=== PATIENT | female | born 1975 | race Caucasian/White ===

== ENCOUNTER 2017-11-15 15:50 | Emergency (ER) | payer OTHER ==
[2017-11-15] MEDS ORDERED: DOXYCYCLINE 100 MG CAP PO ONE (16:16)
--- NOTE | 2017-11-15 17:03 | RAD REPORT ---
EXAM DESCRIPTION: RAD - Foot Left 3 View - 11/15/2017 4:47 pm CLINICAL HISTORY: Left Foot pain FINDINGS: No fracture or dislocation is seen. Degenerative changes involve the navicular cuneiform joint consisting of osteophytes, subchondral sc lerosis and subchondral cysts
--- NOTE | 2017-11-15 17:05 | ER ---
Nurse's Notes [facility] Name: Gracie Ford Age: 42 yrs Sex: Female : 1975 Arrival Date: 11/15/2017 Time: 15:51 Bed 17 Private MD: Diagnosis: Cellulitis of back [any part except buttock];Fracture of other and unspecified tarsal bone(s) Presentation: 11/15 15:56 Presenting complaint: Patient states: I have had an abscess for 2 weeks and now the la1 area on my back is red and spreading. I also fell 3 days ago and my left foot is hurting. Transition of care: patient was not received from another setting of care. Onset of symptoms was November 15, 2017. Initial Sepsis Screen: Does the patient meet any 2 criteria? HR > 90 bpm. Does the patient have a suspected source of infection? Yes:. Care prior to arrival: None. 15:56 Method Of Arrival: Ambulatory la1 15:56 Acuity: JULIANE 3 la1 Triage Assessment: 16:01 Injury Description: pt. hurt left ankle when she tripped over her son that was laying rb1 on the floor. 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 - Social history:: Smoking status: Patient uses tobacco products, smokes one-half pack cigarettes per day. Screenin:01 Abuse screen: Denies threats or abuse. Nutritional screening: No deficits noted. rb1 Tuberculosis screening: No symptoms or risk factors identified. Fall Risk Fall in past 12 months (25 points). No secondary diagnosis (0 pts). No IV (0 pts). Ambulatory Aid- None/Bed Rest/Nurse Assist (0 pts). Gait- Normal/Bed Rest/Wheelchair (0 pts) Mental Status- Oriented to own ability (0 pts). Total Jo Fall Scale indicates Low Risk Score (25-44 pts). Fall prevention measures have been instituted. Side Rails Up X 2 Placed close to Nursing Station 1:1 attendant Assigned to Pt. Frequent Obs/Assesments occuring Family Present and informed to notify staff if they need to leave bedside As available Patient and Family Educated on Fall Prevention Program and strategies. Assessment: 16:01 General: Appears in no apparent distress. comfortable, obese, Behavior is calm, rb1 cooperative, Denies fever. Pain: Complains of pain in left foot Pain currently is 6 out of 10 on a pain scale. Neuro: Level of Consciousness is awake, alert, obeys commands, Oriented to person, place, time, situation. Neuro: Reports dizziness. Cardiovascular: Capillary refill < 3 seconds is brisk in bilateral fingers. Respiratory: Airway is patent Respiratory effort is even, unlabored, Respiratory pattern is regular, symmetrical. GI: Reports nausea. : No signs and/or symptoms were reported regarding the genitourinary system. Derm: Skin is pink, warm \\T\\ dry. Musculoskeletal: Swelling present in left foot pt. stated, "my son was in the floor and I tripped and fell and hurt my ankle.". 17:00 Reassessment: Patient appears in no apparent distress at this time. Patient and/or rb1 family updated on plan of care and expected duration. Pain level reassessed. Patient is alert, oriented x 3, equal unlabored respirations, skin warm/dry/pink. Vital Signs: 15:57 BP 139 / 77; Pulse 100; Resp 19; Temp 98.4(TE); Pulse Ox 100% on R/A; Weight 81.65 kg; la1 Height 5 ft. 2 in. (157.48 cm); 17:00 BP 141 / 88; Pulse 95; Resp 18; Pulse Ox 100% on R/A; rb1 15:57 Body Mass Index 32.92 (81.65 kg, 157.48 cm) la1 ED Course: 15:51 Patient arrived in ED. as 15:54 [facility]C [facility] snw 15:54 Martin Corcoran MD is Attending Physician. snw 15:57 Triage completed. la1 15:58 Arm band placed on left wrist. la1 16:01 Patient has correct armband on for positive identification. Bed in low position. Call rb1 light in reach. Side rails up X 1. Pulse ox on. NIBP on. 16:06 Jasmin Decker RN is Primary Nurse. ph 16:14 Amna Ruiz, RN is Primary Nurse. rb1 16:44 X-ray completed. Portable x-ray completed in exam room. Patient tolerated procedure kp1 well. 16:44 Foot Left 3 View XRAY In Process Unspecified. EDMS 17:04 Tyler Gordon MD is Referral Physician. snw 17:12 Orthoglass splint: Posterior short lleg splint applied on left leg. capillary refill dh3 less than 3 seconds. 17:40 No provider procedures requiring assistance completed. Patient did not have IV access rb1 during this emergency room visit. Administered Medications: 16:24 Drug: Doxycycline 100 mg Route: PO; rb1 17:00 Follow up: Response: No adverse reaction rb1 17:40 Drug: [place] 5 mg-325 mg 1 tabs Route: PO; rb1 17:55 Follow up: Response: Medication administered at discharge. rb1 17:55 Not Given (Patient Refused): TORadol 60 mg IM once rb1 Outcome: 17:04 Discharge ordered by MD. snw 17:40 Patient left the ED. rb1 17:40 Discharged to home via wheelchair, with crutches, with family. rb1 17:40 Condition: stable 17:40 Discharge instructions given to patient, Instructed on discharge instructions, follow up and referral plans. medication usage, Demonstrated understanding of instructions, follow-up care, medications, Prescriptions given X 2. Signatures: Dispatcher [employer] EDND Melania Epps, METAL BONDING PRESS OPERATOR-C METAL BONDING PRESS OPERATOR-Csnw Khalida Bass Lee, RN RN la1 Jasmin Decker RN RN Amna Ruiz, RN RN rb1 RennerKenyatta daily kp1 Aarti Howe dh3 Corrections: (The following items were deleted from the chart) 17:57 17:55 Patient left the ED. rb1 rb1
--- NOTE | 2017-11-15 17:05 | EDPHYS ---
Physician Documentation [facility] Name: Gracie Ford Age: 42 yrs Sex: Female : 1975 Arrival Date: 11/15/2017 Time: 15:51 Bed 17 Private MD: ED Physician Martin Corcoran HPI: 11/15 16:27 This 42 yrs old Female presents to ER via Ambulatory with complaints of snw Abscess, Foot Injury. 16:27 The patient presents with an abscess of the right scapular area. Description: snw erythematous. Onset: The symptoms/episode began/occurred 1 week(s) ago, and became persistent. Associated signs and symptoms: The patient has no apparent associated signs or symptoms. Severity of symptoms: At their worst the symptoms were moderate. The patient has experienced similar episodes in the past, chronically. The patient has been recently seen at the [facility] Emergency Department, a couple of weeks ago, for similar complaints. multiple abscess in the past. Pt states that she would also like her left foot evaluated s/p fall several days ago. 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 - Social history:: Smoking status: Patient uses tobacco products, smokes one-half pack cigarettes per day. ROS: 16:18 Constitutional: Negative for fever, chills, and weight loss, Eyes: Negative for injury, snw pain, redness, and discharge, ENT: Negative for injury, pain, and discharge, Neck: Negative for injury, pain, and swelling, Cardiovascular: Negative for chest pain, palpitations, and edema, Respiratory: Negative for shortness of breath, cough, wheezing, and pleuritic chest pain, Abdomen/GI: Negative for abdominal pain, nausea, vomiting, diarrhea, and constipation, Back: Negative for injury and pain, : Negative for injury, bleeding, discharge, and swelling, Neuro: Negative for headache, weakness, numbness, tingling, and seizure. 16:18 MS/extremity: Positive for injury or acute deformity, decreased range of motion, pain, of the left foot. 16:18 Skin: Positive for abscess, of the right scapular area. Exam: 16:14 Constitutional: This is a well developed, well nourished patient who is awake, alert, snw and in no acute distress. Head/Face: Normocephalic, atraumatic. Eyes: Pupils equal round and reactive to light, extra-ocular motions intact. Lids and lashes normal. Conjunctiva and sclera are non-icteric and not injected. Cornea within normal limits. Periorbital areas with no swelling, redness, or edema. ENT: Nares patent. No nasal discharge, no septal abnormalities noted. Tympanic membranes are normal and external auditory canals are clear. Oropharynx with no redness, swelling, or masses, exudates, or evidence of obstruction, uvula midline. Mucous membranes moist. Neck: Trachea midline, no thyromegaly or masses palpated, and no cervical lymphadenopathy. Supple, full range of motion without nuchal rigidity, or vertebral point tenderness. No Meningismus. Chest/axilla: Normal chest wall appearance and motion. Nontender with no deformity. No lesions are appreciated. Cardiovascular: Regular rate and rhythm with a normal S1 and S2. No gallops, murmurs, or rubs. Normal PMI, no JVD. No pulse deficits. Respiratory: Lungs have equal breath sounds bilaterally, clear to auscultation and percussion. No rales, rhonchi or wheezes noted. No increased work of breathing, no retractions or nasal flaring. Abdomen/GI: Soft, non-tender, with normal bowel sounds. No distension or tympany. No guarding or rebound. No evidence of tenderness throughout. Back: No spinal tenderness. No costovertebral tenderness. Full range of motion. + erythematous, draining area to right scapular border that pt has cleaned, area with central area of recent abscess, no discharge, + surrounding minimal cellulitis Neuro: Awake and alert, GCS 15, oriented to person, place, time, and situation. Cranial nerves II-XII grossly intact. Motor strength 5/5 in all extremities. Sensory grossly intact. Cerebellar exam normal. Normal gait. 16:14 Musculoskeletal/extremity: Extremities: grossly normal except: noted in the left foot: contusion, decreased ROM, swelling, tenderness. Vital Signs: 15:57 BP 139 / 77; Pulse 100; Resp 19; Temp 98.4(TE); Pulse Ox 100% on R/A; Weight 81.65 kg; la1 Height 5 ft. 2 in. (157.48 cm); 17:00 BP 141 / 88; Pulse 95; Resp 18; Pulse Ox 100% on R/A; rb1 15:57 Body Mass Index 32.92 (81.65 kg, 157.48 cm) la1 Procedures: 17:03 Splinting: Splint applied to left foot using Orthoglass splint, applied by tech. snw Examined by me, post splint application: neurovascular intact, 2+ distal pulses palpable, brisk capillary refill noted, Patient tolerated well. MDM: 16:07 Patient medically screened. snw 16:29 Data reviewed: vital signs, nurses notes. Data interpreted: Pulse oximetry: on room air snw is 100 %. Interpretation: normal. Counseling: I had a detailed discussion with the patient and/or guardian regarding: the historical points, exam findings, and any diagnostic results supporting the discharge/admit diagnosis, the presence of at least one elevated blood pressure reading (>120/80) during this emergency department visit, radiology results, the need for outpatient follow up. ED course: pt has actually made quite a bit of progress toward resolving abscess and cellulitis at right scapular border.. 16:53 Special discussion: I have referred the patient to see his PCP for further evaluation snw of high blood pressure. I discussed in detail with the patient the higher chance of wound infection based on his presenting history. Based on the history and exam findings, there is no indication for further emergent testing or inpatient evaluation. I discussed with the patient/guardian the need to see the delphi developer for further evaluation of the symptoms. I discussed with the patient/guardian the need to see the orthopedic surgeon for further evaluation of the symptoms. I discussed with the patient/guardian the need to see the primary care provider for further evaluation of the symptoms. 11/15 16:13 Order name: Foot Left 3 View XRAY; Complete Time: 17:08 snw 11/15 16:50 Order name: Posterior Orthoglass Ankle Splint; Complete Time: 17:34 snw 11/15 16:50 Order name: Crutches; Complete Time: 17:12 snw 11/15 17:08 Order name: Crutch Training; Complete Time: 17:12 snw Administered Medications: 16:24 Drug: Doxycycline 100 mg Route: PO; rb1 17:00 Follow up: Response: No adverse reaction rb1 17:40 Drug: [place] 5 mg-325 mg 1 tabs Route: PO; rb1 17:55 Follow up: Response: Medication administered at discharge. rb1 17:55 Not Given (Patient Refused): TORadol 60 mg IM once rb1 Disposition: 11/15/17 17:04 Discharged to Home. Impression: Cellulitis of back [any part except buttock], Fracture of other and unspecified tarsal bone(s). - Condition is Stable. - Discharge Instructions: Abscess, Cast or Splint Care, Cellulitis, Foot Contusion, Tarsal Navicular Fracture, Crutch Use, [id number], Heat Therapy. - Prescriptions for Doxycycline Hyclate 100 mg Oral Tablet - take 1 tablet by ORAL route every 12 hours; 20 tablet. Diclofenac Sodium 75 mg Oral Tablet Sustained Release - take 1 tablet by ORAL route 2 times per day; 30 tablet. - Medication Reconciliation Form, Thank You Letter, Antibiotic Education, Prescription Opioid Use form. - Follow up: Private Physician; When: 2 - 3 days; Reason: Recheck today's complaints, Continuance of care, Re-evaluation by your physician. Follow up: Tyler Gordon MD; When: 2 - 3 days; Reason: Recheck today's complaints, Continuance of care. Signatures: Dispatcher [employer] EDMelania Martinez, CLEANING VALIDATION CONSULTANT-C CLEANING VALIDATION CONSULTANT-Csnw Milton Ramirez RN RN la1 Amna Ruiz, RN RN rb1
[2017-11-15] MEDS ORDERED: HYDROCODONE/APAP 5/325 MG TAB ONE (17:37)
[2017-11-15] MEDS ORDERED: KETOROLAC 30 MG/ML INJ ONE (17:37)
== END 2017-11-15 17:55 | disposition home or self-care (01) ==
LOC: ER 15:50
DX: L03.312 Cellulitis of back [any part except buttock and flank] (principal); S92.202A Fracture of unspecified tarsal bone(s) of left foot, initial encounter for closed fracture; W01.0XXA Fall on same level from slipping, tripping and stumbling without subsequent striking against object, initial encounter; Y93.89 Activity, other specified; Y92.019 Unspecified place in single-family (private) house as the place of occurrence of the external cause
CPT/HCPCS: 99284

== ENCOUNTER 2018-01-23 20:03 | Emergency (ER) | payer OTHER ==
[2018-01-23] MEDS ORDERED: ASPIRIN 81 MG CHEWABLE TABLET ONE (20:54)
[2018-01-23 21:17] LABS: Absolute Lymphocytes (CBC) 1.2 K/uL (0.7-4.9); Absolute Monocytes 0.6 K/uL (0.1-1.3); Absolute Neutrophil 8.9 K/uL (1.8-8.0); Basophils % 0.2 % (0-1.3); Eosinophils % 0.7 % (0-4.4); Hematocrit 39.1 % (36.0-45.0); Lymphocytes % 11.4 % (15.3-44.8); MCH 28.5 pg (27.0-35.0); MCV 83.6 fL (80-100); MPV 7.8 fL (7.6-11.3); Monocytes % 5.2 % (3.3-12.3); RBC Red Blood Cell Count 4.67 M/uL (3.86-4.86)
[2018-01-23 21:32] LABS: Protime INR 0.95
[2018-01-23 21:36] LABS: ALT/SGPT 70 U/L (12-78); AST/SGOT 34 U/L (15-37); Albumin 3.9 g/dL (3.4-5.0); Alkaline Phosphatase 135 U/L (45-117); BUN Blood Urea Nitrogen 9 mg/dL (7-18); Bicarbonate 28 mmol/L (21-32); Bilirubin Direct < 0.1 mg/dL (0-0.2); Bilirubin Total 0.3 mg/dL (0.2-1.0); Glucose Level 131 mg/dL (74-106); Magnesium 1.9 mg/dL (1.8-2.4); NT PRO-BNP 55 pg/mL (<125); Potassium 3.6 mmol/L (3.5-5.1); Protein, Total 8.1 g/dL (6.4-8.2); Sodium Level 139 mmol/L (136-145)
--- NOTE | 2018-01-23 22:11 | RAD REPORT ---
EXAM DESCRIPTION: Clementina Hanson (2 Views)01/23/2018 9:27 pm CLINICAL HISTORY: Chest pain COMPARISON: 2007 FINDINGS: The lungs appear clear of acute infiltrate. The heart is normal size IMPRESSION: No acute abnormalities displayed
[2018-01-23 23:36] LABS: Urine Blood NEGATIVE (NEG); Urine Glucose NEGATIVE (NEG); Urine Protein NEGATIVE (NEG); Urine Specific Gravity 1.015 (1.005-1.030); Urine pH 5.5 (5.0-7.0)
[2018-01-24] MEDS ORDERED: LORazepam 2 MG/ML VIAL ONE (00:58)
--- NOTE | 2018-01-24 01:16 | EDPHYS ---
Physician Documentation [facility] Name: Gracie Ford Age: 43 yrs Sex: Female : 1975 Arrival Date: 01/23/2018 Time: 20:06 Bed 26 Private MD: ED Physician Sahil Oliva HPI: 01/24 01:51 This 43 yrs old Female presents to ER via Ambulatory with complaints of wa Breathing Difficulty, Near Syncope. 01:51 The patient has shortness of breath at rest, sudden onset of L side chest pain with wa radiation down L arm. also assoc with SOB. now resolved but states feels anxious all over.. Onset: The symptoms/episode began/occurred just prior to arrival, today. Duration: The symptoms are continuous, but are markedly better than the original presentation. The patient's shortness of breath is aggravated by nothing, is alleviated by nothing. Associated signs and symptoms: Pertinent positives: chest pain, dizziness, SOB, Pertinent negatives: diaphoresis, hemoptysis, vomiting. Severity of symptoms: At their worst the symptoms were moderate in the emergency department the symptoms have resolved. The patient has experienced a previous episode, last week. advised to go see a ornament setter but didn't . The patient has not recently seen a physician. 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 - Social history:: Smoking status: Patient uses tobacco products, smokes one-half pack cigarettes per day. - Ebola Screening: : No symptoms or risks identified at this time. - Family history:: not pertinent. - Hospitalizations: : No recent hospitalization is reported. ROS: 01/24 01:54 Constitutional: Negative for fever, chills, and weight loss, Eyes: Negative for injury, wa pain, redness, and discharge, ENT: Negative for injury, pain, and discharge, Neck: Negative for injury, pain, and swelling, Abdomen/GI: Negative for abdominal pain, nausea, vomiting, diarrhea, and constipation, Back: Negative for injury and pain, : Negative for injury, bleeding, discharge, and swelling, MS/Extremity: Negative for injury and deformity, Skin: Negative for injury, rash, and discoloration, Psych: Negative for depression, anxiety, suicide ideation, homicidal ideation, and hallucinations. Cardiovascular: Positive for chest pain, Negative for edema, orthopnea, palpitations. Respiratory: Positive for shortness of breath, Negative for cough, hemoptysis, orthopnea, pleurisy. Exam: 01:55 Constitutional: This is a well developed, well nourished patient who is awake, alert, wa and in no acute distress. Head/Face: Normocephalic, atraumatic. Eyes: Pupils equal round and reactive to light, extra-ocular motions intact. Lids and lashes normal. Conjunctiva and sclera are non-icteric and not injected. Cornea within normal limits. Periorbital areas with no swelling, redness, or edema. ENT: Nares patent. No nasal discharge, no septal abnormalities noted. Tympanic membranes are normal and external auditory canals are clear. Oropharynx with no redness, swelling, or masses, exudates, or evidence of obstruction, uvula midline. Mucous membranes moist. Neck: Trachea midline, no thyromegaly or masses palpated, and no cervical lymphadenopathy. Supple, full range of motion without nuchal rigidity, or vertebral point tenderness. No Meningismus. Cardiovascular: Regular rate and rhythm with a normal S1 and S2. No gallops, murmurs, or rubs. Normal PMI, no JVD. No pulse deficits. Respiratory: Lungs have equal breath sounds bilaterally, clear to auscultation and percussion. No rales, rhonchi or wheezes noted. No increased work of breathing, no retractions or nasal flaring. Abdomen/GI: Soft, non-tender, with normal bowel sounds. No distension or tympany. No guarding or rebound. No evidence of tenderness throughout. Back: No spinal tenderness. No costovertebral tenderness. Full range of motion. Skin: Warm, dry with normal turgor. Normal color with no rashes, no lesions, and no evidence of cellulitis. MS/ Extremity: Pulses equal, no cyanosis. Neurovascular intact. Full, normal range of motion. Neuro: Awake and alert, GCS 15, oriented to person, place, time, and situation. Cranial nerves II-XII grossly intact. Motor strength 5/5 in all extremities. Sensory grossly intact. Cerebellar exam normal. Normal gait. Psych: Awake, alert, with orientation to person, place and time. Behavior, mood, and affect are within normal limits. Vital Signs: 01/23 20:13 Weight 86.18 kg; Height 5 ft. 2 in. (157.48 cm); Pain 9/10; kr2 21:56 BP 126 / 73; Pulse 91; Resp 18; Pulse Ox 96% on R/A; Pain 0/10; mb3 23:59 BP 139 / 73; Pulse 84; Resp 18; Pulse Ox 99% on R/A; mb3 20:13 Body Mass Index 34.75 (86.18 kg, 157.48 cm) kr2 MDM: 20:25 Patient medically screened. 01/24 01:55 Differential diagnosis: Anxiety Reaction Myocardial Infarction pulmonary edema, wa reactive airway disease, Unstable Angina. Data reviewed: vital signs, nurses notes, lab test result(s), EKG, radiologic studies. Test interpretation: by ED physician or midlevel provider: EKG: HR 79. nml axis. no acute changes concerning for ischemia. 01:57 Test interpretation: by ED physician or midlevel provider: labs noted wnl including 2 sets of enzymes. . ED course: Risk factor of smoking. no significant family history. HEART score <3. will have f/u with ornament setter as out pt. 01/23 20:48 Order name: Basic Metabolic Panel; Complete Time: 21:58 01/23 20:48 Order name: CBC with Diff; Complete Time: 21:58 01/23 20:48 Order name: LFT's; Complete Time: 21:58 01/23 20:48 Order name: Magnesium; Complete Time: 21:58 01/23 20:48 Order name: NT PRO-BNP; Complete Time: 21:58 01/23 20:48 Order name: PT-INR; Complete Time: 21:58 01/23 20:48 Order name: Troponin (emerg Dept Use Only); Complete Time: 21:58 01/23 20:48 Order name: EKG; Complete Time: 20:48 01/23 20:48 Order name: Cardiac monitoring; Complete Time: 21:10 29 20:48 Order name: Chest Pa And Lat (2 Views) XRAY; Complete Time: 23:43 la 01/23 22:26 Order name: Urine Dipstick--Ancillary (enter results); Complete Time: 23:43 01/23 23:47 Order name: Troponin (emerg Dept Use Only); Complete Time: 00:43 la 01/23 20:48 Order name: EKG - Nurse/Tech; Complete Time: 21: la 01/23 20:48 Order name: IV Saline Lock; Complete Time: 21: la 01/23 20:48 Order name: Labs collected and sent; Complete Time: 21: la 01/23 20:48 Order name: O2 Per Protocol; Complete Time: 21: la 01/23 20:48 Order name: O2 Sat Monitoring; Complete Time: 21: la 01/23 20:48 Order name: Urine Dipstick-Ancillary (obtain specimen); Complete Time: 23:59 la Administered Medications: 01/23 21:00 Drug: Aspirin Chewable Tablet 324 mg Route: PO; mb3 23:48 Follow up: Response: No adverse reaction mb3 01/24 01:01 Follow up: Response: No adverse reaction mb3 01:00 Drug: Ativan 0.5 mg Route: IVP; Site: left antecubital; mb3 02:03 Follow up: Response: No adverse reaction mb3 Disposition: 01/24/18 01:16 Discharged to Home. Impression: Chest pain. - Condition is Stable. - Discharge Instructions: Nonspecific Chest Pain, [id number]. - Prescriptions for Xanax 0.25 mg Oral Tablet - take 1 tablet by ORAL route every 8 hours As needed; 8 tablet. - Medication Reconciliation Form, Thank You Letter, Antibiotic Education, Prescription Opioid Use form. - Follow up: Ravin Alston MD; When: 2 - 3 days; Reason: Recheck today's complaints. - Problem is new. - Symptoms have improved. - Notes: follow up with the ornament setter as discussed. take a baby aspirin daily as discussed until cleared by the ornament setter. return for rapidly worsening concerns Signatures: Dispatcher [employer] EDMS Sahil Oliva MD MD wa Reaves, Karey RN RN kr2 Harris, Shorty, RN RN mb3 Corrections: (The following items were deleted from the chart) 02:03 01:16 01/24/2018 01:16 Discharged to Home. Impression: Chest pain. Condition is Stable. mb3 Forms are Medication Reconciliation Form, Thank You Letter, Antibiotic Education, Prescription Opioid Use. Follow up: Ravin Alston; When: 2 - 3 days; Reason: Recheck today's complaints. Problem is new. Symptoms have improved. wa
--- NOTE | 2018-01-24 01:16 | ER ---
Nurse's Notes [facility] Name: Gracie Ford Age: 43 yrs Sex: Female : 1975 Arrival Date: 01/23/2018 Time: 20:06 Bed 26 Private MD: Diagnosis: Chest pain Presentation: 01/23 20:11 Presenting complaint: Patient states: I am having chest pain, left arm pain, and kr2 burning throughout my body. I was seen at the [facility] last week because I haven't been feeling well. They told me I had a clicking sound in my heart and I needed to see a state trooper. I have not been able to see one yet or make an appointment. Transition of care: patient was not received from another setting of care. Onset of symptoms was January 23, 2018. Risk Assessment: Do you want to hurt yourself or someone else? Patient reports no desire to harm self or others. Initial Sepsis Screen: Does the patient meet any 2 criteria? No. Patient's initial sepsis screen is negative. Does the patient have a suspected source of infection? No. Patient's initial sepsis screen is negative. Care prior to arrival: None. 20:11 Method Of Arrival: Ambulatory kr2 20:11 Acuity: JULIANE 3 kr2 Triage Assessment: 20:23 General: Appears in no apparent distress. obese, unkempt, well developed, Behavior is kr2 cooperative, anxious, restless. Pain: Complains of pain in xyphoid area, mid-sternal area and left breast Pain radiates to left arm Pain currently is 10 out of 10 on a pain scale. Quality of pain is described as sharp, shooting, Is continuous, Alleviated by rest, Aggravated by increased activity. Respiratory: Reports shortness of breath on exertion Onset: The symptoms/episode began/occurred today, the patient reports symptoms have resolved. 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 - Social history:: Smoking status: Patient uses tobacco products, smokes one-half pack cigarettes per day. - Ebola Screening: : No symptoms or risks identified at this time. - Family history:: not pertinent. - Hospitalizations: : No recent hospitalization is reported. Screenin:25 Abuse screen: Denies threats or abuse. Denies injuries from another. Nutritional kr2 screening: No deficits noted. Tuberculosis screening: No symptoms or risk factors identified. Fall Risk None identified. Assessment: 20:25 Pain:. Cardiovascular: Rhythm is sinus tachycardia. Respiratory: Airway is patent kr2 Respiratory effort is even, unlabored. 21:11 General: Appears in no apparent distress. comfortable, Behavior is calm, cooperative, mb3 appropriate for age. Neuro: No deficits noted. Level of Consciousness is awake, alert, obeys commands, Oriented to person, place, time, situation, Appropriate for age. Respiratory: Breath sounds are clear bilaterally. GI: No deficits noted. No signs and/or symptoms were reported involving the gastrointestinal system. 21:56 Reassessment: Patient and/or family updated on plan of care and expected duration. Pain mb3 level reassessed. Patient is alert, oriented x 3, equal unlabored respirations, skin warm/dry/pink. Patient states feeling better. Patient states symptoms have improved. 01/24 00:04 Reassessment: Patient and/or family updated on plan of care and expected duration. Pain mb3 level reassessed. Patient is alert, oriented x 3, equal unlabored respirations, skin warm/dry/pink. Patient states feeling better. Vital Signs: 01/23 20:13 Weight 86.18 kg; Height 5 ft. 2 in. (157.48 cm); Pain 9/10; kr2 21:56 BP 126 / 73; Pulse 91; Resp 18; Pulse Ox 96% on R/A; Pain 0/10; mb3 23:59 BP 139 / 73; Pulse 84; Resp 18; Pulse Ox 99% on R/A; mb3 20:13 Body Mass Index 34.75 (86.18 kg, 157.48 cm) kr2 ED Course: 19:45 Inserted saline lock: 20 gauge in left antecubital area, using aseptic technique. Blood mb3 collected. 20:06 Patient arrived in ED. es 20:10 Jessy Ruiz, LELIA is Primary Nurse. kr2 20:13 Triage completed. kr2 20:24 Arm band placed on. kr2 20:25 Sahil Oliva MD is Attending Physician. wa 20:25 Patient has correct armband on for positive identification. Bed in low position. Call kr2 light in reach. Side rails up X 1. compliance monitor on. Pulse ox on. NIBP on. Door closed. Warm blanket given. Head of bed elevated. 21:25 X-ray completed. Patient tolerated procedure well. ag1 21:26 Chest Pa And Lat (2 Views) XRAY In Process Unspecified. [facility] 01/24 01:15 Ravin Alston MD is Referral Physician. wa 02:02 No provider procedures requiring assistance completed. IV discontinued, intact, mb3 bleeding controlled, No redness/swelling at site. Pressure dressing applied. Administered Medications: 01/23 21:00 Drug: Aspirin Chewable Tablet 324 mg Route: PO; mb3 23:48 Follow up: Response: No adverse reaction mb3 01/24 01:01 Follow up: Response: No adverse reaction mb3 01:00 Drug: Ativan 0.5 mg Route: IVP; Site: left antecubital; mb3 02:03 Follow up: Response: No adverse reaction mb3 Outcome: 01:16 Discharge ordered by . wa 02:01 Discharged to home ambulatory, with family. mb3 02:01 Condition: stable 02:01 Discharge instructions given to patient, Instructed on discharge instructions, follow up and referral plans. medication usage, Demonstrated understanding of instructions, follow-up care, medications, Prescriptions given X 1. 02:03 Patient left the ED. mb3 Signatures: Dispatcher [employer] [facility] Ginny Carvajal Ashley ag1 Sahil Oliva MD MD wa Reaves, Karey, LELIA RN kr2 Shorty Harris, RN RN mb3
--- NOTE | 2018-01-24 08:41 | EKG ---
Test Date: 2018-01-23 Test Time: 22:09:32 Log Hooker: MB MEASUREMENT RESULTS: Intervals: Rate: 79 ND: 138 QRSD: 90 QT: 368 QTc: 421 [place]: P: 37 ND: 138 QRS: 17 T: 20 INTERPRETIVE STATEMENTS: Normal sinus rhythm Low voltage QRS Borderline ECG Compared to ECG 06/03/2008 18:47:30 Low QRS voltage now present Electronically Signed On 01-24-18 08:40:32 CDT by Romero Colin
== END 2018-01-24 02:03 | disposition home or self-care (01) ==
LOC: ER 20:03
DX: R07.9 Chest pain, unspecified (principal); R06.00 Dyspnea, unspecified; R55 Syncope and collapse; F17.210 Nicotine dependence, cigarettes, uncomplicated; Z88.8 Allergy status to other drugs, medicaments and biological substances
CPT/HCPCS: 36415; 71046; 80048; 80076; 81003; 83735; 83880; 84484; 85025; 85610; 93005; 96374; 99284

== ENCOUNTER 2018-04-06 21:11 | Observation (INO) | payer MEDICAID, OTHER, SELFPAY ==
--- NOTE | 2018-04-06 21:56 | RAD REPORT ---
EXAM DESCRIPTION: RAD - Chest Single View - 04/06/2018 9:51 pm CLINICAL HISTORY: CHEST PAIN Chest pain. COMPARISON: Chest Pa And Lat (2 Views) dated 01/23/2018; CHEST SINGLE VIEW dated 06/03/2008; CHEST PA AND LAT 2 VIEW dated 12/10/2007; CHEST PA AND LAT 2 VIEW dated 08/03/2002 FINDINGS: Portable technique limits examination quality. Mild interstitial pulmonary edema is seen. No focal infiltrate suggestive of pneumonia present. The h eart is mildly enlarged in size. No displaced fractures.
--- NOTE | 2018-04-06 22:04 | ER ---
Nurse's Notes [facility] Name: Gracie Ford Age: 43 yrs Sex: Female : 1975 Arrival Date: 04/06/2018 Time: 21:12 Bed 2 Private MD: Diagnosis: Chest pain, unspecified;Acute laryngitis;Hypokalemia;Cardiomegaly Presentation: 04/06 21:38 Presenting complaint: Patient states: Left sided CP that radiates to left shoulder. Pt tl2 states that it feels like something is choking her. Pt states she is currently on methadone and it feels like she's having withdrawal symptoms. Pt states she feels hot all over. Hoarseness to voice noted. Transition of care: patient was not received from another setting of care. Onset of symptoms was April 06, 2018 at 18:00. Risk Assessment: Do you want to hurt yourself or someone else? Patient reports no desire to harm self or others. Initial Sepsis Screen: Does the patient meet any 2 criteria? No. Patient's initial sepsis screen is negative. Does the patient have a suspected source of infection? No. Patient's initial sepsis screen is negative. Care prior to arrival: None. 21:38 Method Of Arrival: Wheelchair tl2 21:38 Acuity: JULIANE 3 tl2 Triage Assessment: 21:40 General: Appears in no apparent distress. uncomfortable, Behavior is cooperative, tl2 appropriate for age, anxious. Pain: Complains of pain in left clavicle and anterior aspect of left upper chest Pain radiates to anterior aspect of left shoulder Quality of pain is described as sharp. Neuro: Level of Consciousness is awake, alert, obeys commands, Oriented to person, place, time, situation. Cardiovascular: Chest pain is described as diffuse, quality is sharp, is located in anterior radiates to left scapula began 3 hours prior to arrival. Respiratory: Reports shortness of breath Airway is patent Respiratory effort is even, unlabored, Respiratory pattern is regular, symmetrical. GI: No signs and/or symptoms were reported involving the gastrointestinal system. : No signs and/or symptoms were reported regarding the genitourinary system. Derm: Skin is pink, warm \T\ dry. Historical: - Allergies: 21:40 Phenergan; tl2 21:40 Zofran; tl2 21:40 Reglan; tl2 - Home Meds: 21:40 methadone 40 mg Oral TbSO 1 tab once daily for Opioid Dependence [Active]; Zoloft 100 tl2 mg Oral tab [Active]; - PMHx: 21:40 Depression; tl2 - Immunization history:: Adult Immunizations up to date. - Social history:: Smoking status: Patient uses tobacco products, smokes one-half pack cigarettes per day. - Ebola Screening: : No symptoms or risks identified at this time. - Family history:: not pertinent. Screenin:43 Abuse screen: Denies threats or abuse. Nutritional screening: No deficits noted. tl2 Tuberculosis screening: No symptoms or risk factors identified. Fall Risk None identified. Assessment: 21:45 General: see triage assessment. tl2 23:10 Reassessment: Patient appears in no apparent distress at this time. Patient and/or tl2 family updated on plan of care and expected duration. Pain level reassessed. Patient is alert, oriented x 3, equal unlabored respirations, skin warm/dry/pink. Pt states she would like to have ativan. 04/07 00:30 Reassessment: Patient appears in no apparent distress at this time. Patient and/or tl2 family updated on plan of care and expected duration. Pain level reassessed. Patient is alert, oriented x 3, equal unlabored respirations, skin warm/dry/pink. Pt stable and ready for transport to floor. Vital Signs: 04/06 21:40 BP 180 / 98; Pulse 90; Resp 15; Pulse Ox 98% on R/A; Weight 81.65 kg; Height 5 ft. 5 tl2 in. (165.10 cm); Pain 02/03; 04/07 00:46 BP 133 / 80; Pulse 84; Resp 18; Pulse Ox 96% ; tl2 04/06 21:40 Body Mass Index 29.95 (81.65 kg, 165.10 cm) tl2 ED Course: 04/06 21:12 Patient arrived in ED. am2 21:32 Kalyan Pascual MD is Attending Physician. yolie 21:32 Sheri Diop is Primary Nurse. cc3 21:39 Triage completed. tl2 21:40 Arm band placed on right wrist. tl2 21:43 Patient has correct armband on for positive identification. Bed in low position. Call tl2 light in reach. Side rails up X2. Adult w/ patient. 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 Pulse ox on. NIBP on. 21:43 Inserted saline lock: 20 gauge in right forearm, using aseptic technique. Blood tl2 collected. placed by LELIA Goldsmith. Patient maintains SpO2 saturation greater than 95% on room air. 21:50 X-ray completed. Portable x-ray completed in exam room. Patient tolerated procedure bb2 well. 21:51 XRAY Chest (1 view) In Process Unspecified. EDMS 22:02 Lyric Easton MD is Hospitalizing Provider. [facility] 22:04 Violet Nichols RN is Primary Nurse. tl2 22:[address] via stretcher. jg6 22:20 CT Head Brain wo Cont In Process Unspecified. EDMS 22:20 CT completed. Patient tolerated procedure well. Patient moved back from CT. nj 22:20 Patient moved to radiology. nj 22:28 X-ray completed. Patient tolerated procedure well. mh1 23:[address] via stretcher. kw1 23:45 CT completed. Patient tolerated procedure well. Patient moved back from CT. kw1 09 00:30 No provider procedures requiring assistance completed. Patient admitted, IV remains in tl2 place. Administered Medications: 04/06 22:05 Not Given (Patient Refused): fentaNYL (PF) 25 mcg IVP once tl2 22:15 Drug: Aspirin Chewable Tablet 324 mg Route: PO; cc3 04/07 00:08 Follow up: Response: No adverse reaction bp 04/06 23:20 Drug: Lovenox 1 mg/kg Route: Sub-Q; Site: left upper abdomen; tl2 04/07 00:07 Follow up: Response: No adverse reaction bp 04/06 23:21 Drug: Potassium Effervescent Tablet 50 mEq Route: PO; tl2 04/07 00:07 Follow up: Response: No adverse reaction bp 04/06 23:21 Drug: Ativan 1 mg Route: IVP; Site: right antecubital; tl2 04/07 00:07 Follow up: Response: Anxiety decreased bp Outcome: 04/06 22:03 Decision to Hospitalize by Provider. yolie 04/07 00:30 Admitted to Tele accompanied by tech, via wheelchair, room 408, with chart, Report tl2 called to LELIA Wilson Condition: stable Discharge instructions given to patient, Instructed on the need for admit. 01:22 Patient left the ED. tl2 Signatures: Dispatcher [employer] EDKalyan Barahona MD MD cha Harvey, Martha 1 Violet Nichols RN RN tl2 Ismael Castillo Amanda 2 Agus Islas RN RN bp Milena Mcclure kw1 CornucopiaRadha bb2 Sheri Diop cc3 Grecia Wynn jg6 Corrections: (The following items were deleted from the chart) 04/06 21:49 21:38 Presenting complaint: Patient states: Left sided CP that radiates to left tl2 shoulder. Pt states that it feels like something is choking her. Pt states she is currently on methadone and it feels like she's having withdrawal symptoms tl2 04/07 01:18 01:17 Reassessment: Patient appears in no apparent distress at this time. Patient tl2 and/or family updated on plan of care and expected duration. Pain level reassessed. Patient is alert, oriented x 3, equal unlabored respirations, skin warm/dry/pink. Pt states she would like to have ativan tl2
--- NOTE | 2018-04-06 22:04 | EDPHYS ---
Physician Documentation [facility] Name: Gracie Ford Age: 43 yrs Sex: Female : 1975 Arrival Date: 04/06/2018 Time: 21:12 Bed 2 Private MD: ED Physician Kalyan Pascual HPI: 04/06 21:56 This 43 yrs old Female presents to ER via Wheelchair with complaints of Chest yolie Pain > 30 y/o. 21:56 The patient or guardian reports chest pain that is located primarily in the anterior yolie chest wall, bilaterally. Onset: just prior to arrival. The pain radiates to both shoulders. Associated signs and symptoms: Pertinent positives: nausea, shortness of breath. The chest pain is described as a heaviness, a pressure. Modifying factors: The symptoms are alleviated by nothing. the symptoms are aggravated by nothing. Severity of pain: At its worst the pain was moderate in the emergency department the pain is unchanged. The patient has experienced a previous episode, last year. Historical: - Allergies: 21:40 Phenergan; tl2 21:40 Zofran; tl2 21:40 Reglan; tl2 - Home Meds: 21:40 methadone 40 mg Oral TbSO 1 tab once daily for Opioid Dependence [Active]; Zoloft 100 tl2 mg Oral tab [Active]; - PMHx: 21:40 Depression; tl2 - Immunization history:: Adult Immunizations up to date. - Social history:: Smoking status: Patient uses tobacco products, smokes one-half pack cigarettes per day. - Ebola Screening: : No symptoms or risks identified at this time. - Family history:: not pertinent. ROS: 21:56 Constitutional: Negative for fever, chills, and weight loss, Eyes: Negative for injury, yolie pain, redness, and discharge, ENT: Negative for injury, pain, and discharge, Neck: Negative for injury, pain, and swelling, Respiratory: Negative for shortness of breath, cough, wheezing, and pleuritic chest pain, Abdomen/GI: Negative for abdominal pain, nausea, vomiting, diarrhea, and constipation, Back: Negative for injury and pain, : Negative for injury, bleeding, discharge, and swelling, MS/Extremity: Negative for injury and deformity, Skin: Negative for injury, rash, and discoloration, Neuro: Negative for headache, weakness, numbness, tingling, and seizure, Psych: Negative for depression, anxiety, suicide ideation, homicidal ideation, and hallucinations, Allergy/Immunology: Negative for hives, rash, and allergies, Endocrine: Negative for neck swelling, polydipsia, polyuria, polyphagia, and marked weight changes, Hematologic/Lymphatic: Negative for swollen nodes, abnormal bleeding, and unusual bruising. 21:56 Cardiovascular: Positive for chest pain, of the chest. Exam: 21:56 Constitutional: This is a well developed, well nourished patient who is awake, alert, yolie and in no acute distress. Head/Face: Normocephalic, atraumatic. Eyes: Pupils equal round and reactive to light, extra-ocular motions intact. Lids and lashes normal. Conjunctiva and sclera are non-icteric and not injected. Cornea within normal limits. Periorbital areas with no swelling, redness, or edema. ENT: Nares patent. No nasal discharge, no septal abnormalities noted. Tympanic membranes are normal and external auditory canals are clear. Oropharynx with no redness, swelling, or masses, exudates, or evidence of obstruction, uvula midline. Mucous membranes moist. Neck: Trachea midline, no thyromegaly or masses palpated, and no cervical lymphadenopathy. Supple, full range of motion without nuchal rigidity, or vertebral point tenderness. No Meningismus. Chest/axilla: Normal chest wall appearance and motion. Nontender with no deformity. No lesions are appreciated. Cardiovascular: Regular rate and rhythm with a normal S1 and S2. No gallops, murmurs, or rubs. Normal PMI, no JVD. No pulse deficits. Respiratory: Lungs have equal breath sounds bilaterally, clear to auscultation and percussion. No rales, rhonchi or wheezes noted. No increased work of breathing, no retractions or nasal flaring. Abdomen/GI: Soft, non-tender, with normal bowel sounds. No distension or tympany. No guarding or rebound. No evidence of tenderness throughout. Back: No spinal tenderness. No costovertebral tenderness. Full range of motion. Skin: Warm, dry with normal turgor. Normal color with no rashes, no lesions, and no evidence of cellulitis. MS/ Extremity: Pulses equal, no cyanosis. Neurovascular intact. Full, normal range of motion. Neuro: Awake and alert, GCS 15, oriented to person, place, time, and situation. Cranial nerves II-XII grossly intact. Motor strength 5/5 in all extremities. Sensory grossly intact. Cerebellar exam normal. Normal gait. Psych: Awake, alert, with orientation to person, place and time. Behavior, mood, and affect are within normal limits. 21:56 ENT: Posterior pharynx: no acute changes, Airway: normal, no evidence of obstruction, Tonsils: are normal in appearance, Uvula: normal, midline, swelling, is not appreciated, erythema, is not appreciated, exudate, is not appreciated. 23:02 Musculoskeletal/extremity: DVT Exam: No signs of deep vein thrombosis. no pain, no yolie swelling, no tenderness, negative Homans' sign noted on exam, no appreciated bluish discoloration, no erythema, no increased warmth. Vital Signs: 21:40 BP 180 / 98; Pulse 90; Resp 15; Pulse Ox 98% on R/A; Weight 81.65 kg; Height 5 ft. 5 tl2 in. (165.10 cm); Pain 02/03; 04/07 00:46 BP 133 / 80; Pulse 84; Resp 18; Pulse Ox 96% ; tl2 04/06 21:40 Body Mass Index 29.95 (81.65 kg, 165.10 cm) tl2 MDM: 04/06 21:32 Patient medically screened. [facility] 22:00 Data reviewed: vital signs, nurses notes, lab test result(s), EKG, radiologic studies, [facility] CT scan, plain films. 04/06 21:42 Order name: Basic Metabolic Panel; Complete Time: 23:00 bp 04/06 21:42 Order name: CBC with Diff; Complete Time: 23:00 bp 04/06 21:42 Order name: Ckmb; Complete Time: 23:00 bp 04/06 21:42 Order name: CPK; Complete Time: 23:00 bp 04/06 21:42 Order name: LFT's; Complete Time: 23:00 bp 04/06 21:42 Order name: Magnesium; Complete Time: 23:00 bp 04/06 21:42 Order name: NT PRO-BNP; Complete Time: 23:00 bp 04/06 21:42 Order name: PT-INR; Complete Time: 23:00 bp 04/06 21:42 Order name: Ptt, Activated; Complete Time: 23:00 bp 04/06 21:42 Order name: Troponin (emerg Dept Use Only); Complete Time: 23:00 bp 04/06 21:58 Order name: Lipase; Complete Time: 23:00 EDMS 04/06 21:58 Order name: D-Dimer; Complete Time: 23:00 EDMS 04/06 21:42 Order name: Urine Test (obtain specimen); Complete Time: 22:29 bp 04/06 21:42 Order name: XRAY Chest (1 view); Complete Time: 23:00 bp 04/06 21:42 Order name: EKG; Complete Time: 21:44 bp 04/06 21:42 Order name: Cardiac monitoring; Complete Time: 21:43 bp 04/06 22:01 Order name: Neck Soft Tissue XRAY [facility] 04/06 22:01 Order name: CT Head Brain wo Cont [facility] 04/06 22:07 Order name: CONS Physician Consult [facility] 04/06 22:20 Order name: Urine Dipstick--Ancillary (enter results); Complete Time: 23:58 rg2 04/06 22:20 Order name: Urine --Ancillary (enter results); Complete Time: 23:58 rg2 04/06 22:38 Order name: RAD; Complete Time: 23:00 EDMS 04/06 23:02 Order name: CT Chest For PE Angio [facility] 04/06 21:42 Order name: EKG - Nurse/Tech; Complete Time: 21:44 bp 04/06 21:42 Order name: IV Saline Lock; Complete Time: 21:44 bp 04/06 21:42 Order name: Labs collected and sent; Complete Time: 21:44 bp 04/06 21:42 Order name: O2 Per Protocol; Complete Time: 21:44 bp 04/06 21:42 Order name: O2 Sat Monitoring; Complete Time: 21:44 bp 04/06 21:42 Order name: Urine Dipstick-Ancillary (obtain specimen); Complete Time: 22:14 bp Administered Medications: 22:05 Not Given (Patient Refused): fentaNYL (PF) 25 mcg IVP once tl2 22:15 Drug: Aspirin Chewable Tablet 324 mg Route: PO; cc3 04/07 00:08 Follow up: Response: No adverse reaction bp 04/06 23:20 Drug: Lovenox 1 mg/kg Route: Sub-Q; Site: left upper abdomen; tl2 04/07 00:07 Follow up: Response: No adverse reaction bp 04/06 23:21 Drug: Potassium Effervescent Tablet 50 mEq Route: PO; tl2 04/07 00:07 Follow up: Response: No adverse reaction bp 04/06 23:21 Drug: Ativan 1 mg Route: IVP; Site: right antecubital; tl2 04/07 00:07 Follow up: Response: Anxiety decreased bp Disposition: 04/06/18 22:03 Hospitalization ordered by Lyric Easton for Observation. Preliminary diagnosis are Chest pain, unspecified, Acute laryngitis, Hypokalemia, Cardiomegaly. - Bed requested for Telemetry/MedSurg (observation). - Status is Observation. tl2 - Condition is Stable. - Problem is new. - Symptoms have improved. UTI on Admission? No Signatures: Dispatcher [employer] EDMS Fara Nathan rg2 Kalyan Pascual MD MD cha Knox, Taylor, RN RN tl2 Agus Islas RN RN Sheri Short cc3 Corrections: (The following items were deleted from the chart) 04/06 21:57 21:56 LIPASE+C.LAB.BRZ ordered. EDMS EDMS 21:58 21:56 D-DIMER+COAG.LAB.BRZ ordered. EDCA EDMS 23:02 22:03 Hospitalization Ordered by Lyric Easton MD for Observation. Preliminary rg2 diagnosis is Chest pain, unspecified; Acute laryngitis. Bed requested for Telemetry/MedSurg (observation). Status is Observation. Condition is Stable. Problem is new. Symptoms have improved. UTI on Admission? No. yolie 23:03 23:02 04/06/2018 22:03 Hospitalization Ordered by Lyric Easton MD for Observation. yolie Preliminary diagnosis is Chest pain, unspecified; Acute laryngitis. Bed requested for Telemetry/MedSurg (observation). Status is Observation. Condition is Stable. Problem is new. Symptoms have improved. UTI on Admission? No. rg2 04/07 01:22 04/06 23:03 04/06/2018 22:03 Hospitalization Ordered by Lyric Easton MD for tl2 Observation. Preliminary diagnosis is Chest pain, unspecified; Acute laryngitis; Hypokalemia; Cardiomegaly. Bed requested for Telemetry/MedSurg (observation). Status is Observation. Condition is Stable. Problem is new. Symptoms have improved. UTI on Admission? No. yolie
[2018-04-06] MEDS ORDERED: ASPIRIN 81 MG CHEWABLE TABLET ONE (22:14)
[2018-04-06 22:19] LABS: Absolute Lymphocytes (CBC) 1.5 K/uL (0.7-4.9); Absolute Monocytes 0.9 K/uL (0.1-1.3); Absolute Neutrophil 10.8 K/uL (1.8-8.0); Basophils % 0.2 % (0-1.3); Eosinophils % 1.1 % (0-4.4); Hematocrit 39.1 % (36.0-45.0); Lymphocytes % 11.4 % (15.3-44.8); MCH 28.9 pg (27.0-35.0); MPV 8.3 fL (7.6-11.3); Monocytes % 6.8 % (3.3-12.3)
[2018-04-06 22:24] LABS: ALT/SGPT 20 U/L (12-78); AST/SGOT 15 U/L (15-37); Albumin 3.8 g/dL (3.4-5.0); Alkaline Phosphatase 107 U/L (45-117); BUN Blood Urea Nitrogen 10 mg/dL (7-18); Bicarbonate 26 mmol/L (21-32); Bilirubin Direct 0.1 mg/dL (0-0.2); Bilirubin Total 0.4 mg/dL (0.2-1.0); CKMB Creatine Kinase MB 2.6 ng/mL (0.3-3.6); Creatine Phosphokinase 113 U/L (26-192); Glucose Level 113 mg/dL (74-106); Lipase 82 U/L (73-393); NT PRO-BNP 292 pg/mL (<125); Potassium 3.1 mmol/L (3.5-5.1); Protein, Total 7.9 g/dL (6.4-8.2); Sodium Level 141 mmol/L (136-145); Troponin (Emerg Dept Use Only) < 0.02 ng/mL (0.0-0.045)
[2018-04-06 22:32] LABS: Protime INR 0.99
[2018-04-06] MEDS ORDERED: ENOXAPARIN 80 MG/0.8 ML SQ ONE (22:33)
--- NOTE | 2018-04-06 22:36 | RAD REPORT ---
EXAM DESCRIPTION: RAD - Neck Soft Tissue - 04/06/2018 10:31 pm CLINICAL HISTORY: PAIN Dysphagia COMPARISON: None FINDINGS: Prevertebral soft tissues are normal. Epiglottis and aryepiglottic folds are normal. Air c olumn is patent. No foreign body is seen.Moderate lower cervical degenerative changes. IMPRESSION: Negative study.
[2018-04-06] MEDS ORDERED: MORPHINE 4 MG/ML SYR IV PRN (22:41)
[2018-04-06] MEDS ORDERED: ACETAMINOPHEN 500 MG TAB PO PRN (22:41)
[2018-04-06 23:06] LABS: Urine Blood NEGATIVE (NEG); Urine Glucose NEGATIVE (NEG); Urine Protein NEGATIVE (NEG)
[2018-04-06] MEDS ORDERED: LORazepam 2 MG/ML VIAL ONE (23:12)
[2018-04-06] MEDS ORDERED: POTASSIUM 25 MEQ EFFERV TAB ONE (23:12)
[2018-04-07] MEDS: METHYLPREDNISOLONE 125 MG INJ IV SCH ×3 (01:53→12:48)
[2018-04-07 04:04] LABS: Barbiturates NEGATIVE (NEGATIVE); Benzodiazepines NEGATIVE (NEGATIVE); Cocaine NEGATIVE (NEGATIVE); METHAMPHETAM NEGATIVE (NEGATIVE); Methadone POSITIVE (NEGATIVE); Opiates NEGATIVE (NEGATIVE); Phencyclidine NEGATIVE (NEGATIVE); THC Cannibis NEGATIVE (NEGATIVE)
[2018-04-07] MEDS ORDERED: LORazepam 2 MG/ML VIAL IV PRN (04:17)
[2018-04-07 07:54] LABS: Absolute Lymphocytes (CBC) 0.7 K/uL (0.7-4.9); Absolute Monocytes 0.2 K/uL (0.1-1.3); Absolute Neutrophil 12.2 K/uL (1.8-8.0); Hematocrit 39.2 % (36.0-45.0); Lymphocytes % 5.4 % (15.3-44.8); MCH 29.1 pg (27.0-35.0); MPV 8.2 fL (7.6-11.3); Monocytes % 1.2 % (3.3-12.3); RBC Red Blood Cell Count 4.61 M/uL (3.86-4.86)
[2018-04-07 08:01] LABS: BUN Blood Urea Nitrogen 9 mg/dL (7-18); Bicarbonate 26 mmol/L (21-32); Glucose Level 157 mg/dL (74-106); HDL Cholesterol 47 mg/dL (40-60); LDL Cholesterol, Calculated 156 (<130); Potassium 3.6 mmol/L (3.5-5.1); Sodium Level 138 mmol/L (136-145)
--- NOTE | 2018-04-07 08:25 | RAD REPORT ---
EXAM DESCRIPTION: CT - Head Brain Wo Cont - 04/06/2018 10:19 pm CLINICAL HISTORY: HEADACHE COMPARISON: No comparisons TECHNIQUE: All CT scans are performed using dose optimization technique as appropriate and may inclu de automated exposure control or mA/KV adjustment according to patient size. FINDINGS: No intracranial hemorrhage, hydrocephalus or extra-axial fluid collection.No areas of brai n edema or evidence of midline shift. The paranasal sinuses and mastoids are clear. The calvarium is intact. IMPRESSION: No acute intracranial abnormality.
--- NOTE | 2018-04-07 08:48 | RAD REPORT ---
EXAM DESCRIPTION: CT - Chest For Pe Angio - 04/07/2018 6:59 am CLINICAL HISTORY: Chest pain. CHEST PAIN COMPARISON: No comparisons TECHNIQUE: CT angiogram of the pulmonary arteries was performed with MIP. All CT scans are performed using dose optimization technique as appropriate and may include automated exposure control or mA/KV adjustment according to patient size. FINDINGS: Motion degradation is present limiting assessment. Evaluation for pulmonary embolism is th us quite limited. No large proximal embolus is seen. No acute aortic finding demonstrated. The lungs are clear. No significant pericardial or pleural fluid. No concerning bony finding. IMPRESSION: Very limited examination due to respiratory motion. No large proximal pulmonary embolism is present. Consider followup V/Q scan for further assessment clinically indicated.
[2018-04-07] MEDS ORDERED: ROSUVASTATIN 10 MG TAB PO SCH ×2 (09:00→21:00)
[2018-04-07] MEDS ORDERED: ENOXAPARIN 40 MG/0.4 ML SQ SCH (09:00)
[2018-04-07] MEDS ORDERED: ASPIRIN EC 81 MG TAB PO SCH (09:00)
[2018-04-07] MEDS ORDERED: METOPROLOL TAR 50 MG TAB PO SCH (09:00)
[2018-04-07] MEDS ORDERED: METHADONE HCL 40 MG DISPERSIBLE TAB PO SCH (09:00)
[2018-04-07 10:05] LABS: Blood Morphology Comment NOT SEEN (NOT SEEN); Platelet Estimate ADEQ; Urine White Blood Cell Casts OK
--- NOTE | 2018-04-07 11:01 | EKG ---
Test Date: 2018-04-07 Test Time: 08:47:48 Child Care Aide: DARRELL MEASUREMENT RESULTS: Intervals: Rate: 84 OR: 118 QRSD: 94 QT: 368 QTc: 434 [place]: P: 45 OR: 118 QRS: 20 T: 41 INTERPRETIVE STATEMENTS: Normal sinus rhythm Cannot rule out Anterior infarct, age undetermined Abnormal ECG Compared to ECG 04/06/2018 21:34:06 Sinus tachycardia no longer present Myocardial infarct finding still present Electronically Signed On 04-07-18 11:00:00 CDT by Ravin Alston
--- NOTE | 2018-04-07 11:03 | EKG ---
Test Date: 2018-04-06 Test Time: 21:34:06 Thread Winder Automatic: MEASUREMENT RESULTS: Intervals: Rate: 103 NE: 142 QRSD: 94 QT: 338 QTc: 442 [place]: P: 40 NE: 142 QRS: 14 T: 50 INTERPRETIVE STATEMENTS: Sinus tachycardia Possible Anterior infarct, age undetermined Abnormal ECG Compared to ECG 01/23/2018 22:09:32 Myocardial infarct finding now present Sinus rhythm no longer present Electronically Signed On 04-07-18 11:00:44 CDT by Ravin Alston
--- NOTE | 2018-04-07 11:25 | ECHO ---
HEIGHT: 5 ft 5 in WEIGHT: 180 lb 0 oz DATE OF STUDY: 04/07/[address]: Lyric Easton MD 2-DIMENSIONAL: YES M.MODE: YES DOPPLER: YES COLOR FLOW: YES TDS: NO PORTABLE: NO DEFINITY: NO BUBBLE STUDY: NO DIAGNOSIS: CONGESTIVE HEART FAILURE CARDIAC HISTORY: CATHERIZATION: NO SURGERY: NO PROSTHETIC VALVE: NO PACEMAKER: NO MEASUREMENTS (cm) DIASTOLIC (NORMALS) SYSTOLIC (NORMALS) IVSd 0.9 (0.6-1.2) LA Diam 3.8 (1.9-4.0) LVEF 59% LVIDd 5.3 (3.5-5.7) LVIDs 3.6 (2.0-3.5) %FS 32% LVPWd 0.9 (0.6-1.2) Ao Diam 2.8 (2.0-3.7) 2 DIMENSIONAL ASSESSMENT: RIGHT ATRIUM: NORMAL LEFT ATRIUM: NORMAL RIGHT VENTRICLE: NORMAL LEFT VENTRICLE: NORMAL TRICUSPID VALVE: NORMAL MITRAL VALVE: NORMAL PULMONIC VALVE: NORMAL AORTIC VALVE: NORMAL PERICARDIAL EFFUSION: NONE AORTIC ROOT: NORMAL LEFT VENTRICULAR WALL MOTION: NORMAL DOPPLER/COLOR FLOW: TRACE MITRAL REGURGITATION. COMMENTS: TRACE MITRAL REGURGITATION. NORMAL LEFT VENTRICULAR EJECTION FRACTION AND SIZE. NO WALL MOTION ABNORMALITY. NO EFFUSION. TECHNOLOGIST: Eben RAY
[2018-04-07] MEDS ORDERED: MORPHINE 2 MG/ML SYR IV PRN (14:52)
--- NOTE | 2018-04-08 00:17 | CON ---
Date of Consultation: 04/07/[address] Easton's service on 04/06/2018. The patient was seen on 04/07/2018 because of chest pa in. History Of Present Illness: Ms. Ford is a 43-year-old woman, has no previous cardiac history. She h as a history of depression and opioid dependence for which she is getting medication including methad one and Zoloft. Has been under significant amount of stress lately. Has had some recent hoarseness in her throat. Also developed some chest heaviness, shortness of breath, and mucus production, cough . Has elevated white count. Recently had a negative screen. Denied PND, orthopnea, peda l edema, palpitations, or syncope. Chest x-ray showed possible mild interstitial edema. Potassium w as 3.4. BNP was 292. Her white count was 13,000. Troponin, BNP, CPKs are negative. Allergies: SHE IS ALLERGIC TO COMPAZINE, ZOFRAN, AND REGLAN. Review of Systems: Negative. Social History: Positive for opioid dependence and stress. Family History: Noncontributory. Medications At Home: Listed earlier. Physical Examination: Vital Signs: Stable, afebrile. HEENT: Negative. Neck: Supple. No bruit. Chest: Clear. Cardiac: Normal. Abdomen: Benign. Extremities: Revealed no clubbing, cyanosis, or edema. Diagnostic Data: As stated earlier. Impression And Plan: Atypical chest pain, most likely secondary to gastroesophageal reflux disease o r bronchitis. She has elevated white count. Chest x-ray showed questionable interstitial edema. Po tassium was 3.1. BNP was 292. I think an echocardiogram is in order to rule out congestive heart fa shaniqua, although I doubt it. I do not think she needs any cardiac workup beyond an echocardiogram at this point. If the echocardiogram showed any wall motion abnormalities, we have to change our plans. I will continue her present regimen. If her echocardiogram is normal, I will send her home on some antibiotics and some proton pump inhibitor and will be happy to see her as an outpatient. QI/NADER Voice ID: [id number] Report ID: [id number]
--- NOTE | 2018-04-08 16:02 | DS ---
Date of Discharge: 04/07/2018 Consultants: Dr. Alston with Cardiology. Admitting Diagnoses: 1.Chest pain. 2.Chronic pain syndrome, on methadone. 3.Obesity. 4.Depression. 5.Nicotine dependence. Discharge Diagnoses: 1.Atypical chest pain. 2.Gastroesophageal reflux disease. 3.Obesity, BMI of 30. 4.Prediabetes, diet and exercise modification. 5.Chronic pain syndrome, on methadone. 6.Major depressive disorder. 7.Nicotine dependence and cigarette smoking. Hospital Course: The patient is a 43-year-old female who comes in to the hospital with chest pain. The patient also reports some dysphagia with solids. She states that she feels spasm in her esophagu s. She does have a history of gastroesophageal reflux disease with ulcer, which was treated by Dr. Shelia han in the past. She has had an EGD in the remote past. The patient does take omeprazole over the counter. The patient was instructed to stop taking NSAIDs over the counter, which can exacerbate ul cers. The patient was seen by Dr. Alston and echocardiogram was done, which was negative for any wa ll motion abnormalities. Her troponin levels were negative. ACS was ruled out. She did have some m ild hypokalemia, which was replaced. CT angio chest was done, which did not show any proximal PE. S oft tissue neck x-ray was done, showed no foreign body. Moderate cervical degenerative changes. The patient was counseled regarding smoking cessation. Head CT scan was done, which did not show any ac carlos cranial abnormality. Chest x-ray did show some mild interstitial pulmonary edema. No focal infi ltrate. Echocardiogram showed EF 59%. No wall motion abnormality. The patient was then cleared for discharge, send home in a stable condition. Activity: As tolerated. Medications: As per medication reconciliation list. Followup: Follow up with primary care physician in 1-2 weeks. Return to ER for worsening condition. Follow up with GI, Dr. Farris in 2 weeks. Follow up with instrument panel assembler, Dr. Alston in 2 weeks. Physical Examination: General: Awake, alert, oriented, in no acute distress. CV: S1, S2. No murmurs. Respiratory: Moving air well bilaterally. Abdomen: Soft, nontender, nondistended. Positive bowel sounds. Extremities: No clubbing, cyanosis, edema. Neurologic: Nonfocal. SA/MODL Voice ID: [id number] Report ID: [id number]
== END 2018-04-07 19:00 | disposition home or self-care (01) ==
LOC: ER 21:11 → ERHOLD 22:23 → 4TH 23:16
PROVIDERS: ADMIT Hospitalist; ATTEND Hospitalist
DX: R07.89 Other chest pain (principal); G89.4 Chronic pain syndrome; K21.9 Gastro-esophageal reflux disease without esophagitis; F32.9 Major depressive disorder, single episode, unspecified; F17.210 Nicotine dependence, cigarettes, uncomplicated; E66.9 Obesity, unspecified; Z68.30 Body mass index [BMI] 30.0-30.9, adult; R73.03 Prediabetes; E87.6 Hypokalemia
CPT/HCPCS: 36415; 70360; 70450; 71045; 71275; 80048; 80061; 80076; 80307; 81003; 81025; 82550; 82553; 83690; 83735; 83880; 84484; 85025; 85379; 85610; 85730; 93005; 93306; 96372; 96374; 99285; G0378; J1650; J2270; J2930; Q9967

== ENCOUNTER 2018-04-12 12:06 | Emergency (ER) | payer SELFPAY ==
[2018-04-12] MEDS ORDERED: IPRATROPIUM BROM 0.5MG/2.5ML ONE (13:05)
[2018-04-12] MEDS ORDERED: ALBUTEROL 2.5 MG/3 ML NEB SOL ONE (13:05)
[2018-04-12] MEDS ORDERED: METHYLPREDNISOLONE 125 MG INJ ONE (13:06)
[2018-04-12] MEDS ORDERED: Levofloxacin 750mg IV 750 MG/150 ML BAG IV ONE (13:20)
[2018-04-12 13:26] LABS: Absolute Lymphocytes (CBC) 2.1 K/uL (0.7-4.9); Absolute Monocytes 1.1 K/uL (0.1-1.3); Absolute Neutrophil 13.7 K/uL (1.8-8.0); Basophils % 0.4 % (0-1.3); Eosinophils % 1.4 % (0-4.4); Hematocrit 37.2 % (36.0-45.0); MCH 28.5 pg (27.0-35.0); MCV 84.7 fL (80-100); MPV 7.9 fL (7.6-11.3); Monocytes % 6.4 % (3.3-12.3); RBC Red Blood Cell Count 4.39 M/uL (3.86-4.86)
[2018-04-12 13:29] LABS: Protime INR 1.08
[2018-04-12 14:02] LABS: ALT/SGPT 32 U/L (12-78); AST/SGOT 18 U/L (15-37); Albumin 3.6 g/dL (3.4-5.0); Alkaline Phosphatase 103 U/L (45-117); BUN Blood Urea Nitrogen 6 mg/dL (7-18); Bicarbonate 29 mmol/L (21-32); Bilirubin Direct 0.2 mg/dL (0-0.2); Bilirubin Total 0.6 mg/dL (0.2-1.0); CKMB Creatine Kinase MB 1.5 ng/mL (0.3-3.6); Creatine Phosphokinase 69 U/L (26-192); Glucose Level 107 mg/dL (74-106); Magnesium 2.4 mg/dL (1.8-2.4); NT PRO-BNP 45 pg/mL (<125); Potassium 3.2 mmol/L (3.5-5.1); Protein, Total 7.7 g/dL (6.4-8.2); Sodium Level 138 mmol/L (136-145); Troponin (Emerg Dept Use Only) < 0.02 ng/mL (0.0-0.045)
--- NOTE | 2018-04-12 15:12 | RAD REPORT ---
EXAM DESCRIPTION: RAD - Chest Single View - 04/12/2018 1:40 pm CLINICAL HISTORY: Productive cough for 1 week COMPARISON: April 06 TECHNIQUE: AP portable chest image was obtained 1336 hours . FINDINGS: No dense mass or consolidations seen. Interstitial markings are prominent but not clearly different. Vasculature is mildly prominent also stable. Heart size is normal range. No measurable ple ural effusion and no pneumothorax. No gross bony abnormality seen. No acute aortic findings suspected . IMPRESSION: No acute cardiopulmonary finding compared to the prior study. Vasculature and lung markings are prominent. A mild or persistent interstitial edema or infiltrate ca nnot be excluded.
--- NOTE | 2018-04-12 16:02 | ER ---
Nurse's Notes [facility] Name: Gracie Ford Age: 43 yrs Sex: Female : 1975 Arrival Date: 04/12/2018 Time: 12:08 Bed 20 Private MD: Jenn Damon H Diagnosis: Pneumonia due to other specified infectious organisms Presentation: 04/12 12:11 Presenting complaint: Patient states: I have had a cough for the last week productive la1 with green sputum and I feel short of breath. Transition of care: patient was not received from another setting of care. Onset of symptoms was April 12, 2018. Risk Assessment: Do you want to hurt yourself or someone else? Patient reports no desire to harm self or others. Initial Sepsis Screen: Does the patient meet any 2 criteria? No. Patient's initial sepsis screen is negative. Does the patient have a suspected source of infection? No. Patient's initial sepsis screen is negative. Care prior to arrival: None. 12:11 Method Of Arrival: Ambulatory la1 12:11 Acuity: JULIANE 3 la1 Triage Assessment: 12:35 General: Appears in no apparent distress. uncomfortable, Behavior is calm, cooperative, hj appropriate for age. Respiratory: Reports cough that is Onset: The symptoms/episode began/occurred the patient has mild shortness of breath. 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 - Social history:: Smoking status: Patient uses tobacco products, smokes one-half pack cigarettes per day, Patient/guardian denies using alcohol, street drugs, The patient lives with family. - Ebola Screening: : No symptoms or risks identified at this time. - Family history:: not pertinent. Screenin:34 Abuse screen: Denies threats or abuse. Denies injuries from another. Nutritional hj screening: No deficits noted. Tuberculosis screening: No symptoms or risk factors identified. Fall Risk None identified. Assessment: 12:35 Pain: Denies pain. Cardiovascular: Capillary refill < 3 seconds Patient's skin is warm hj and dry. Rhythm is regular. Respiratory: Airway is patent Respiratory effort is even, unlabored, Respiratory pattern is regular, symmetrical, Breath sounds are clear. 12:35 General: Appears in no apparent distress. uncomfortable, Behavior is calm, cooperative, hj appropriate for age. Neuro: Level of Consciousness is awake, alert, obeys commands, Oriented to person, place, time, situation, Appropriate for age. GI: No signs and/or symptoms were reported involving the gastrointestinal system. : No signs and/or symptoms were reported regarding the genitourinary system. EENT: No signs and/or symptoms were reported regarding the EENT system. Derm: No signs and/or symptoms reported regarding the dermatologic system. Musculoskeletal: No signs and/or symptoms reported regarding the musculoskeletal system. 13:30 Reassessment: Patient and/or family updated on plan of care and expected duration. Pain hj level reassessed. Patient is alert, oriented x 3, equal unlabored respirations, skin warm/dry/pink. awaiting results and POC;. 14:29 Reassessment: Patient and/or family updated on plan of care and expected duration. Pain hj level reassessed. Patient is alert, oriented x 3, equal unlabored respirations, skin warm/dry/pink. Patient states feeling better. Patient states symptoms have improved. 15:49 Reassessment: Patient and/or family updated on plan of care and expected duration. Pain hj level reassessed. Patient is alert, oriented x 3, equal unlabored respirations, skin warm/dry/pink. awaiting POC;. Vital Signs: 12:12 BP 138 / 76; Pulse 101; Resp 18; Temp 97.3; Pulse Ox 94% on R/A; Weight 86.18 kg; la1 Height 5 ft. 2 in. (157.48 cm); 13:30 BP 119 / 61; Pulse 98; Resp 18; Pulse Ox 98% on R/A; hj 14:30 BP 135 / 75; Pulse 99; Resp 18; Pulse Ox 96% on R/A; hj 15:49 BP 140 / 68; Pulse 90; Resp 18; Pulse Ox 97% on R/A; hj 12:12 Body Mass Index 34.75 (86.18 kg, 157.48 cm) la1 ED Course: 12:08 Patient arrived in ED. mr 12:08 Agus Holm MD is Private Physician. mr 12:09 Jenn Damon DO is Private Physician. mr 12:11 Triage completed. la1 12:12 Arm band placed on left wrist. la1 12:34 Alex Gonzalez RN is Primary Nurse. hj 12:35 Lyric Levin MD is Attending Physician. ma2 12:35 Patient has correct armband on for positive identification. Bed in low position. Call hj light in reach. Side rails up X 1. 13:10 Inserted saline lock: 20 gauge in right antecubital area, using aseptic technique. hj Blood collected. 13:10 Initial lab(s) drawn, by dc, sent to lab. hj 13:40 XRAY Chest (1 view) In Process Unspecified. EDMS 16:08 No provider procedures requiring assistance completed. IV discontinued, intact, hj bleeding controlled, No redness/swelling at site. Pressure dressing applied. Administered Medications: 12:57 Drug: DuoNeb (3:1) (2.5 mg - 0.5 mg) 3 ml Route: Nebulizer; hj 15:15 Follow up: Response: No adverse reaction hj 12:57 Drug: MethylPrednisoLONE 125 mg Route: IVP; Site: right forearm; hj 13:57 Follow up: Response: No adverse reaction hj 13:17 Drug: LevaQUIN 750 mg Volume: 150 ml; Route: IVPB; Infused Over: 90 mins; Site: right hj forearm; 15:16 Follow up: IV Status: Completed infusion; IV Intake: 150ml hj Intake: 15:16 IV: 150ml; Total: 150ml. Outcome: 16:01 Discharge ordered by . ma2 16:08 Discharged to home ambulatory. hj 16:08 Condition: stable 16:08 Discharge instructions given to patient, Instructed on discharge instructions, follow up and referral plans. medication usage, Demonstrated understanding of instructions, follow-up care, medications, Prescriptions given X 3. 16:09 Patient left the ED. Signatures: Dispatcher [employer] EDMN Rosa Ruby Lee, RN RN la1 Alex Gonzalez, RN RN hj Lyric Levin MD MD ma2
--- NOTE | 2018-04-12 16:02 | EDPHYS ---
Physician Documentation [facility] Name: Gracie Ford Age: 43 yrs Sex: Female : 1975 Arrival Date: 04/12/2018 Time: 12:08 Bed 20 Private MD: Jenn Damon H ED Physician Lyric Levin HPI: 04/12 12:54 This 43 yrs old Female presents to ER via Ambulatory with complaints of ma2 Breathing Difficulty. 12:54 The patient has shortness of breath at rest. Onset: The symptoms/episode began/occurred ma2 gradually, 2 day(s) ago. Duration: The symptoms are chronic. The patient's shortness of breath has no apparent modifying factors. Associated signs and symptoms: Pertinent negatives: non-productive cough. Severity of symptoms: At their worst the symptoms were mild in the emergency department the symptoms are unchanged. The patient has experienced similar episodes in the past. hx of COPD has productive cough, was in the hospital for chest pain for <24 and symptoms started before being admitted. 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 - Social history:: Smoking status: Patient uses tobacco products, smokes one-half pack cigarettes per day, Patient/guardian denies using alcohol, street drugs, The patient lives with family. - Ebola Screening: : No symptoms or risks identified at this time. - Family history:: not pertinent. ROS: 12:54 Constitutional: Negative for fever, chills, and weight loss, Eyes: Negative for injury, ma2 pain, redness, and discharge. 12:54 Respiratory: Positive for cough, hemoptysis, shortness of breath, on exertion. wheezing, Negative for hemoptysis, orthopnea. 12:54 All other systems are negative. Exam: 12:54 Constitutional: This is a well developed, well nourished patient who is awake, alert, ma2 and in no acute distress. Eyes: Pupils equal round and reactive to light, extra-ocular motions intact. Lids and lashes normal. Conjunctiva and sclera are non-icteric and not injected. Cornea within normal limits. Periorbital areas with no swelling, redness, or edema. 12:54 Head/Face: Normocephalic, atraumatic. Neck: Trachea midline, no thyromegaly or masses palpated, and no cervical lymphadenopathy. Supple, full range of motion without nuchal rigidity, or vertebral point tenderness. No Meningismus. Cardiovascular: Regular rate and rhythm with a normal S1 and S2. No gallops, murmurs, or rubs. Normal PMI, no JVD. No pulse deficits. MS/ Extremity: Pulses equal, no cyanosis. Neurovascular intact. Full, normal range of motion. Neuro: Awake and alert, GCS 15, oriented to person, place, time, and situation. Cranial nerves II-XII grossly intact. Motor strength 5/5 in all extremities. Sensory grossly intact. Cerebellar exam normal. Normal gait. 12:54 Chest/axilla: Inspection: 12:54 Respiratory: Exam negative for accessory muscles, shortness of breath, the patient does not display signs of respiratory distress, Respirations: normal, Breath sounds: rhonchi, are located in both bases, wheezing: Vital Signs: 12:12 BP 138 / 76; Pulse 101; Resp 18; Temp 97.3; Pulse Ox 94% on R/A; Weight 86.18 kg; la1 Height 5 ft. 2 in. (157.48 cm); 13:30 BP 119 / 61; Pulse 98; Resp 18; Pulse Ox 98% on R/A; hj 14:30 BP 135 / 75; Pulse 99; Resp 18; Pulse Ox 96% on R/A; hj 15:49 BP 140 / 68; Pulse 90; Resp 18; Pulse Ox 97% on R/A; hj 12:12 Body Mass Index 34.75 (86.18 kg, 157.48 cm) la1 MDM: 12:38 Patient medically screened. ma2 12:54 Differential diagnosis: Anemia Anxiety Reaction asthma, CHF exacerbation, Chronic ma2 Obstructive Pulmonary Disease Myocardial Infarction reactive airway disease, Sepsis Unstable Angina. Antibiotic administration: The patient is discharged and will get outpatient antibiotics. The patient's pulmonary embolism risk score was calculated as follows: No Risks (0 Pts). 15:58 Data reviewed: vital signs, nurses notes. [facility] 15:58 Counseling: I had a detailed discussion with the patient and/or guardian regarding: the [facility] historical points, exam findings, and any diagnostic results supporting the discharge/admit diagnosis, the presence of at least one elevated blood pressure reading (>120/80) during this emergency department visit, lab results, the need for outpatient follow up, the need for further work-up and treatment in the hospital. ED course: patient is elevated WBC with HR of 90 she meets SIRS and needs to be admitted to the hospital for IV abx, however she wants to go home as she need to take care of her 8-year old daughter, she received IV levaquin, and will return id any new symptoms, worsening of her symptoms or if no improvement in 1 day . 04/12 12:50 Order name: Basic Metabolic Panel; Complete Time: 14: [facility] 04/12 12:50 Order name: CBC with Diff; Complete Time: 14: [facility] 04/12 12:50 Order name: Ckmb; Complete Time: 14: [facility] 04/12 12:50 Order name: CPK; Complete Time: 14: [facility] 04/12 12:50 Order name: LFT's; Complete Time: 14: [facility] 04/12 12:50 Order name: Magnesium; Complete Time: 14: [facility] 04/12 12:50 Order name: NT PRO-BNP; Complete Time: 14: [facility] 04/12 12:50 Order name: PT-INR; Complete Time: 14: [facility] 04/12 12:50 Order name: Ptt, Activated; Complete Time: 14: [facility] 04/12 12:50 Order name: Troponin (emerg Dept Use Only); Complete Time: 14: [facility] 04/12 12:50 Order name: XRAY Chest (1 view); Complete Time: 15:04/12 15:22 Order name: Urine Dipstick--Ancillary (enter results) ag 04/12 15:22 Order name: Urine --Ancillary (enter results) ag 04/12 12:50 Order name: EKG; Complete Time: 12:50 [facility] 04/12 12:50 Order name: Cardiac monitoring; Complete Time: 12:57 [facility] 04/12 12:50 Order name: EKG - Nurse/Tech; Complete Time: 13:39 [facility] 04/12 12:50 Order name: IV Saline Lock; Complete Time: 13:13 [facility] 04/12 12:50 Order name: Labs collected and sent; Complete Time: 13:13 [facility] 04/12 12:50 Order name: O2 Per Protocol; Complete Time: 12:57 [facility] 04/12 12:50 Order name: O2 Sat Monitoring; Complete Time: 12:57 [facility] 04/12 12:50 Order name: Urine Dipstick-Ancillary (obtain specimen); Complete Time: 15:59 ma2 Administered Medications: 12:57 Drug: DuoNeb (3:1) (2.5 mg - 0.5 mg) 3 ml Route: Nebulizer; 15:15 Follow up: Response: No adverse reaction 12:57 Drug: MethylPrednisoLONE 125 mg Route: IVP; Site: right forearm; 13:57 Follow up: Response: No adverse reaction 13:17 Drug: LevaQUIN 750 mg Volume: 150 ml; Route: IVPB; Infused Over: 90 mins; Site: right forearm; 15:16 Follow up: IV Status: Completed infusion; IV Intake: 150ml Disposition: 04/12/18 16:01 Discharged to Home. Impression: Pneumonia due to other specified infectious organisms. - Condition is Stable. - Discharge Instructions: Community-Acquired Pneumonia, Adult. - Prescriptions for Levaquin 500 mg Oral Tablet - take 1 tablet by ORAL route once daily for 10 days; 10 tablet. Albuterol Sulfate 2.5 mg /3 mL (0.083 %) Inhalation Solution for Nebulization - inhale 1 unit by NEBULIZATION route every 8 hours As needed; 1 box. Prednisone 20 mg Oral Tablet - take 2 tablet by ORAL route once daily for 5 days; 10 tablet. - Medication Reconciliation Form, Thank You Letter, Antibiotic Education, Prescription Opioid Use form. - Follow up: Private Physician; When: Tomorrow; Reason: Continuance of care. - Problem is new. - Symptoms have improved. Signatures: Dispatcher [employer] EDNV Milton Ramirez RN RN la1 Joaquin, Henry, RN RN Lyric Levin MD MD ma2 Corrections: (The following items were deleted from the chart) 16:09 16:01 04/12/2018 16:01 Discharged to Home. Impression: Pneumonia due to other specified hj infectious organisms. Condition is Stable. Forms are Medication Reconciliation Form, Thank You Letter, Antibiotic Education, Prescription Opioid Use. Follow up: Private Physician; When: Tomorrow; Reason: Continuance of care. Problem is new. Symptoms have improved. ma2
[2018-04-12 16:23] LABS: Urine Blood 2+ (NEG); Urine Glucose NEGATIVE (NEG); Urine Protein NEGATIVE (NEG); Urine pH 5.5 (5.0-7.0)
--- NOTE | 2018-04-13 06:53 | EKG ---
Test Date: 2018-04-12 Test Time: 13:25:47 Asbestos Remover: DEREK MEASUREMENT RESULTS: Intervals: Rate: 86 MA: 146 QRSD: 94 QT: 360 QTc: 430 [place]: P: MA: 146 QRS: 174 T: 169 INTERPRETIVE STATEMENTS: Normal sinus rhythm Low voltage QRS Left posterior fascicular block Cannot rule out Inferior infarct, age undetermined Abnormal ECG Compared to ECG 04/07/2018 08:47:48 Low QRS voltage now present Left posterior fascicular block now present Myocardial infarct finding still present Electronically Signed On 04-13-18 06:51:10 CDT by Ravin Alston
== END 2018-04-12 16:09 | disposition home or self-care (01) ==
LOC: ER 12:06
DX: J16.8 Pneumonia due to other specified infectious organisms (principal); F17.210 Nicotine dependence, cigarettes, uncomplicated; F32.9 Major depressive disorder, single episode, unspecified; J44.9 Chronic obstructive pulmonary disease, unspecified; Z88.3 Allergy status to other anti-infective agents; Z88.8 Allergy status to other drugs, medicaments and biological substances
CPT/HCPCS: 36415; 71045; 80048; 80076; 81003; 81025; 82550; 82553; 83735; 83880; 84484; 85025; 85610; 85730; 93005; 94640; 96365; 96366; 96375; 99284; J2930

== ENCOUNTER 2018-04-12 20:20 | Emergency (ER) | payer SELFPAY ==
[2018-04-12] MEDS ORDERED: IPRATROPIUM BROM 0.5MG/2.5ML ONE (22:20)
[2018-04-12] MEDS ORDERED: ALBUTEROL 2.5 MG/3 ML NEB SOL ONE (22:20)
[2018-04-12] MEDS ORDERED: NA CHLORIDE 0.9% 1,000 ML ONE (22:20)
--- NOTE | 2018-04-12 23:49 | EDPHYS ---
Physician Documentation [facility] Name: Gracie Ford Age: 43 yrs Sex: Female : 1975 Arrival Date: 04/12/2018 Time: 20:21 Bed 24 Private MD: ED Physician Mike Iglesias HPI: 04/12 22:00 This 43 yrs old Female presents to ER via Ambulatory with complaints of pm1 Breathing Difficulty, Shortness Of Breath. 22:00 The patient has shortness of breath at rest. Onset: The symptoms/episode began/occurred pm1 2 day(s) ago. Duration: The symptoms are continuous. The patient's shortness of breath is aggravated by nothing, is alleviated by nebulizer treatment. Associated signs and symptoms: Pertinent negatives: chest pain, non-productive cough, fever, nausea, vomiting. Severity of symptoms: in the emergency department the symptoms are worse. The patient has been recently seen at the [facility] Emergency Department, today. Patient was seen here earlier today and offered admission but she had child pickup issues and left. Patient returned to ER reporting that she felt the same as her prior visit once she got home. 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 - Social history:: Smoking status: Patient uses tobacco products, smokes one-half pack cigarettes per day. - Ebola Screening: : No symptoms or risks identified at this time. ROS: 22:00 Constitutional: Negative for fever, chills, and weight loss, Eyes: Negative for injury, pm1 pain, redness, and discharge, ENT: Negative for injury, pain, and discharge, Neck: Negative for injury, pain, and swelling, Cardiovascular: Negative for chest pain, palpitations, and edema. 22:00 Abdomen/GI: Negative for abdominal pain, nausea, vomiting, diarrhea, and constipation, Back: Negative for injury and pain, : Negative for injury, bleeding, discharge, and swelling. 22:00 MS/Extremity: Negative for injury and deformity, Skin: Negative for injury, rash, and discoloration. 22:00 Neuro: Negative for headache, weakness, numbness, tingling, and seizure. 22:00 Respiratory: Positive for shortness of breath, wheezing. Exam: 22:00 Constitutional: This is a well developed, well nourished patient who is awake, alert, pm1 and in no acute distress. Head/Face: Normocephalic, atraumatic. Eyes: Pupils equal round and reactive to light, extra-ocular motions intact. Lids and lashes normal. Conjunctiva and sclera are non-icteric and not injected. Cornea within normal limits. Periorbital areas with no swelling, redness, or edema. ENT: Nares patent. No nasal discharge, no septal abnormalities noted. Tympanic membranes are normal and external auditory canals are clear. Oropharynx with no redness, swelling, or masses, exudates, or evidence of obstruction, uvula midline. Mucous membranes moist. Neck: Trachea midline, no thyromegaly or masses palpated, and no cervical lymphadenopathy. Supple, full range of motion without nuchal rigidity, or vertebral point tenderness. No Meningismus. Chest/axilla: Normal chest wall appearance and motion. Nontender with no deformity. No lesions are appreciated. Cardiovascular: Regular rate and rhythm with a normal S1 and S2. No gallops, murmurs, or rubs. Normal PMI, no JVD. No pulse deficits. 22:00 Abdomen/GI: Soft, non-tender, with normal bowel sounds. No distension or tympany. No guarding or rebound. No evidence of tenderness throughout. Back: No spinal tenderness. No costovertebral tenderness. Full range of motion. Skin: Warm, dry with normal turgor. Normal color with no rashes, no lesions, and no evidence of cellulitis. MS/ Extremity: Pulses equal, no cyanosis. Neurovascular intact. Full, normal range of motion. 22:00 Respiratory: the patient does not display signs of respiratory distress, Respirations: normal, Breath sounds: bronchial sounds, are heard in the right posterior upper lobe and right posterior middle lobe. 22:00 Neuro: Orientation: is normal, Motor: moves all fours. Vital Signs: 20:42 BP 156 / 87; Pulse 127; Resp 18; Temp 98.3(O); Pulse Ox 93% on R/A; Weight 88.45 kg ak1 (R); Height 5 ft. 2 in. (157.48 cm) (R); Pain 0/10; 22:28 BP 119 / 66; Pulse 92; Resp 18; Pulse Ox 96% on R/A; tl3 22:45 BP 125 / 63; Pulse 117; Resp 18; Pulse Ox 97% on R/A; tl3 23:56 BP 120 / 57; Pulse 113; Resp 18; Pulse Ox 96% on R/A; tl3 04/13 00:27 BP 107 / 57; Pulse 105; Resp 18; Pulse Ox 93% on R/A; tl3 01:06 BP 130 / 66; Pulse 105; Resp 18; Pulse Ox 98% on 2 lpm NC; tl3 02:29 BP 121 / 79; Pulse 114; Resp 18; Temp 98.6(O); Pulse Ox 94% on R/A; Pain 2/10; mg2 04/12 20:42 Body Mass Index 35.67 (88.45 kg, 157.48 cm) ak1 MDM: 04/12 21:33 Patient medically screened. pm1 23:43 Data reviewed: vital signs. Data interpreted: Pulse oximetry: on room air is 97 %. pm1 Interpretation: normal. Counseling: I had a detailed discussion with the patient and/or guardian regarding: the historical points, exam findings, and any diagnostic results supporting the discharge/admit diagnosis, the need for further work-up and treatment in the hospital. 04/13 01:00 Physician consultation: Lyric Easton MD was called at 00:55, was contacted at 05:55, pm1 regarding admission, patient's condition, would like repeat blood work and imaging to determine if she is getting better or worse since she was discharged earlier to today. Call him back with results. 02:50 ED course: patient breath sounds clear on auscultation. pm1 02:53 ED course: Patient's CT chest results from [facility] reviewed with Dr. Iglesias and his pm1 impression is bronchitis, not pneumonia; therefore she can discharged home. 02:53 Counseling: I had a detailed discussion with the patient and/or guardian regarding: the pm1 historical points, exam findings, and any diagnostic results supporting the discharge/admit diagnosis, lab results, radiology results, the need for outpatient follow up, to return to the emergency department if symptoms worsen or persist or if there are any questions or concerns that arise at home. 02:55 ED course: informed Dr. Easton of findings and consultation with Dr. Iglesias. pm1 04/12 21:59 Order name: Blood Culture Adult (2) pm1 04/13 00:55 Order name: CBC with Diff; Complete Time: 02:58 pm1 04/13 00:55 Order name: BMP; Complete Time: 01:57 pm1 04/13 01:11 Order name: CT Chest For PE Angio pm1 04/13 02:26 Order name: Manual Differential; Complete Time: 02:58 EDMS Administered Medications: 04/12 22:22 Drug: Albuterol - atroVENT (3:1) (2.5 mg - 0.5 mg) 3 ml Route: Nebulizer; tl3 22:52 Follow up: Response: Wheezing diminished tl3 22:22 Drug: NS 0.9% 1000 ml Route: IV; Rate: 1000 ml; Site: left antecubital; Delivery: tl3 Primary tubing; 04/13 00:36 Follow up: IV Status: Completed infusion; IV Intake: 1000ml tl3 02:18 Drug: Potassium Effervescent Tablet 50 mEq Route: PO; mg2 03:09 Follow up: Response: No adverse reaction mg2 02:29 Drug: predniSONE 40 mg Route: PO; mg2 03:09 Follow up: Response: No adverse reaction mg2 Disposition: 04/13/18 02:58 Discharged to Home. Impression: Bronchitis, not specified as acute or chronic. - Condition is Stable. - Discharge Instructions: Acute Bronchitis, Adult, How to Use an Inhaler, Steps to Quit Smoking, Steps to Quit Smoking, [id number], How to Use an Inhaler, [id number]. - Medication Reconciliation Form, Thank You Letter, Antibiotic Education, Prescription Opioid Use form. - Follow up: Emergency Department; When: As needed; Reason: Worsening of condition. Follow up: Private Physician; When: 2 - 3 days; Reason: Recheck today's complaints, Continuance of care, Re-evaluation by your physician. - Problem is new. - Symptoms have improved. Addendum: 04/17/2018 12:05 Co-signature as Attending Physician, Mike Iglesias MD. g s Signatures: Dispatcher [employer] EDMS Joaquina Molina RN RN Carla Reis RN RN ak1 Ran Jeffers, LOCOMOTIVE LUBRICATING SYSTEMS CLERK LOCOMOTIVE LUBRICATING SYSTEMS CLERK pm1 Mike Iglesias MD MD gs Lowrey, Tammy, RN RN tl3 Glenroy Yip, RN RN mg2 Corrections: (The following items were deleted from the chart) 04/13 00:40 04/12 23:48 Hospitalization Ordered by Lyric Easton MD for Observation. Preliminary diagnosis is Pneumonia, unspecified organism. Bed requested for Telemetry/MedSurg (observation). Status is Observation. Condition is Stable. Problem is new. Symptoms have improved. UTI on Admission? No. pm1 04/13 02:57 00:40 04/12/2018 23:48 Hospitalization Ordered by Lyric Easton MD for Observation. pm1 Preliminary diagnosis is Pneumonia, unspecified organism. Bed requested for Telemetry/MedSurg (observation). Status is Observation. Condition is Stable. Problem is new. Symptoms have improved. UTI on Admission? No. mw 03:14 02:58 04/13/2018 02:58 Discharged to Home. Impression: Bronchitis, not specified as mg2 acute or chronic. Condition is Stable. Forms are Medication Reconciliation Form, Thank You Letter, Antibiotic Education, Prescription Opioid Use. Follow up: Emergency Department; When: As needed; Reason: Worsening of condition. Follow up: Private Physician; When: 2 - 3 days; Reason: Recheck today's complaints, Continuance of care, Re-evaluation by your physician. Problem is new. Symptoms have improved. pm1
--- NOTE | 2018-04-12 23:49 | ER ---
Nurse's Notes [facility] Name: Gracie Ford Age: 43 yrs Sex: Female : 1975 Arrival Date: 04/12/2018 Time: 20:21 Bed 24 Private MD: Diagnosis: Bronchitis, not specified as acute or chronic Presentation: 04/12 20:41 Presenting complaint: Patient states: seen today for bronchitis. pt c/o increased blood ak1 pressure. 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 pt c/o feeling worse and has come back. Transition of care: patient was not received from another setting of care. Onset of symptoms was April 12, 2018. Risk Assessment: Do you want to hurt yourself or someone else? Patient reports no desire to harm self or others. Care prior to arrival: None. 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 no resp distress noted at this time. ak1 21:02 Initial Sepsis Screen: Does the patient meet any 2 criteria?. ak1 04/13 00:48 Initial Sepsis Screen: Does the patient have a suspected source of infection? No. tl3 Patient's initial sepsis screen is negative. Triage Assessment: 04/12 20:42 General: Appears in no apparent distress. Behavior is cooperative. ak1 21:02 EENT: No signs and/or symptoms were reported regarding the EENT system. 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 Gait is steady, Speech is normal, Facial symmetry appears normal. Cardiovascular: No deficits noted. Respiratory: Reports shortness of breath cough that is Onset: The symptoms/episode began/occurred at an unknown time. the patient has mild shortness of breath. GI: No signs and/or symptoms were reported involving the gastrointestinal system. : No signs and/or symptoms were reported regarding the genitourinary system. Derm: No signs and/or symptoms reported regarding the dermatologic system. Musculoskeletal: Reports weakness in generalized body weakness. 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 - Social history:: Smoking status: Patient uses tobacco products, smokes one-half pack cigarettes per day. - Ebola Screening: : No symptoms or risks identified at this time. Screenin:02 Abuse screen: Denies threats or abuse. Denies injuries from another. Nutritional ak1 screening: No deficits noted. Tuberculosis screening: No symptoms or risk factors identified. Fall Risk None identified. Assessment: 21:03 Respiratory: Airway is patent Respiratory effort is even, unlabored. ak1 22:03 General: Appears uncomfortable, well groomed, well developed, well nourished, Behavior tl3 is calm, cooperative, appropriate for age, anxious. Pain: Complains of pain in chest. Neuro: Level of Consciousness is awake, alert, obeys commands, Oriented to person, place, time, situation, Appropriate for age. Cardiovascular: Heart tones S1 S2 present Patient's skin is warm and dry. Rhythm is regular. Respiratory: Breath sounds are coarse Breath sounds with rhonchi Breath sounds with wheezes. Respiratory: Reports shortness of breath cough that is pain with cough. GI: No signs and/or symptoms were reported involving the gastrointestinal system. : No signs and/or symptoms were reported regarding the genitourinary system. EENT: No signs and/or symptoms were reported regarding the EENT system. Derm: No signs and/or symptoms reported regarding the dermatologic system. Musculoskeletal: No signs and/or symptoms reported regarding the musculoskeletal system. 23:56 Reassessment: Patient appears in no apparent distress at this time. No changes from tl3 previously documented assessment. Patient and/or family updated on plan of care and expected duration. Pain level reassessed. Patient is alert, oriented x 3, equal unlabored respirations, skin warm/dry/pink. 04/13 00:27 Reassessment: Patient appears in no apparent distress at this time. No changes from tl3 previously documented assessment. Patient and/or family updated on plan of care and expected duration. Pain level reassessed. Patient is alert, oriented x 3, equal unlabored respirations, skin warm/dry/pink. 01:06 Reassessment: Patient appears in no apparent distress at this time. No changes from tl3 previously documented assessment. Patient and/or family updated on plan of care and expected duration. Pain level reassessed. Patient is alert, oriented x 3, equal unlabored respirations, skin warm/dry/pink. labs redrawn and sent off, ice water offered to patient, lights dimmed. 01:43 Reassessment: patient sent to ct scan. mg2 03:07 Reassessment: Patient appears in no apparent distress at this time. Patient and/or mg2 family updated on plan of care and expected duration. Pain level reassessed. Patient is alert, oriented x 3, equal unlabored respirations, skin warm/dry/pink. patient is for discharge. oxygen saturation well maintained to 94 and above. Vital Signs: 04/12 20:42 BP 156 / 87; Pulse 127; Resp 18; Temp 98.3(O); Pulse Ox 93% on R/A; Weight 88.45 kg ak1 (R); Height 5 ft. 2 in. (157.48 cm) (R); Pain 0/10; 22:28 BP 119 / 66; Pulse 92; Resp 18; Pulse Ox 96% on R/A; tl3 22:45 BP 125 / 63; Pulse 117; Resp 18; Pulse Ox 97% on R/A; tl3 23:56 BP 120 / 57; Pulse 113; Resp 18; Pulse Ox 96% on R/A; tl3 04/13 00:27 BP 107 / 57; Pulse 105; Resp 18; Pulse Ox 93% on R/A; tl3 01:06 BP 130 / 66; Pulse 105; Resp 18; Pulse Ox 98% on 2 lpm NC; tl3 02:29 BP 121 / 79; Pulse 114; Resp 18; Temp 98.6(O); Pulse Ox 94% on R/A; Pain 2/10; mg2 04/12 20:42 Body Mass Index 35.67 (88.45 kg, 157.48 cm) ak1 ED Course: 04/12 20:21 Patient arrived in ED. ds1 20:42 Triage completed. ak1 20:42 Arm band placed on Patient placed in waiting room, Patient notified of wait time. ak1 21:03 Patient has correct armband on for positive identification. ak1 21:31 Ran Jeffers NP is PHCP. pm1 21:31 Mike Iglesias MD is Attending Physician. pm1 21:33 Gina Martini, RN is Primary Nurse. tl3 21:50 First set of blood cultures drawn by me, Second set of blood cultures drawn by me. tl3 22:03 No provider procedures requiring assistance completed. Inserted saline lock: 20 gauge tl3 in left antecubital area, using aseptic technique. Blood collected. 22:12 Blood Culture Adult (2) Sent. tl3 23:48 Lyric Easton MD is Hospitalizing Provider. pm1 04/13 00:48 Patient admitted, IV remains in place. Oxygen administration via nasal cannula \T\ 2L/min tl3 Response to oxygen therapy: symptoms improved. 01:06 Door closed. Lights dimmed. PO fluids given. tl3 01:29 Patient moved to [place] via stretcher. kw1 01:57 CT completed. Patient tolerated procedure well. Patient moved back from [place]. kw1 03:07 IV discontinued, intact, bleeding controlled, No redness/swelling at site. Pressure mg2 dressing applied. Administered Medications: 04/12 22:22 Drug: Albuterol - atroVENT (3:1) (2.5 mg - 0.5 mg) 3 ml Route: Nebulizer; tl3 22:52 Follow up: Response: Wheezing diminished tl3 22:22 Drug: NS 0.9% 1000 ml Route: IV; Rate: 1000 ml; Site: left antecubital; Delivery: tl3 Primary tubing; 04/13 00:36 Follow up: IV Status: Completed infusion; IV Intake: 1000ml tl3 02:18 Drug: Potassium Effervescent Tablet 50 mEq Route: PO; mg2 03:09 Follow up: Response: No adverse reaction mg2 02:29 Drug: predniSONE 40 mg Route: PO; mg2 03:09 Follow up: Response: No adverse reaction mg2 Intake: 00:36 IV: 1000ml; Total: 1000ml. tl3 Outcome: 04/12 23:48 Decision to Hospitalize by Provider. pm1 04/13 02:58 Discharge ordered by . pm1 03:08 Discharged to home ambulatory. mg2 03:08 Condition: stable 03:08 Discharge instructions given to patient, Instructed on discharge instructions, follow up and referral plans. Demonstrated understanding of instructions, follow-up care. 03:14 Patient left the ED. mg2 Signatures: Milagro Ibarra ds1 Carla Reis RN RN ak1 Ran Jeffers, PLATE AND FRAME FILTER OPERATOR PLATE AND FRAME FILTER OPERATOR pm1 Milena Mcclure kw1 Gina Martini RN RN tl3 Glenroy Yip RN RN mg2 Corrections: (The following items were deleted from the chart) 03:08 00:48 Admitted to Tele accompanied by tech, via wheelchair, with chart, Report called mg2 to Parvin ROWELL tl3 03:08 00:48 Condition: stable tl3 mg2 03:08 00:48 Instructed on the need for admit, tl3 mg2
[2018-04-13 01:42] LABS: Absolute Lymphocytes (CBC) 0.6 K/uL (0.7-4.9); Absolute Monocytes 0.2 K/uL (0.1-1.3); Absolute Neutrophil 15.6 K/uL (1.8-8.0); Basophils % 0.1 % (0-1.3); Hematocrit 35.4 % (36.0-45.0); Lymphocytes % 3.9 % (15.3-44.8); MCV 84.8 fL (80-100); MPV 7.8 fL (7.6-11.3); Monocytes % 1.2 % (3.3-12.3); RBC Red Blood Cell Count 4.18 M/uL (3.86-4.86)
[2018-04-13 01:50] LABS: BUN Blood Urea Nitrogen 6 mg/dL (7-18); Bicarbonate 29 mmol/L (21-32); Glucose Level 166 mg/dL (74-106); Sodium Level 141 mmol/L (136-145)
[2018-04-13] MEDS ORDERED: POTASSIUM 25 MEQ EFFERV TAB ONE (02:10)
[2018-04-13 02:26] LABS: Blood Morphology Comment NOT SEEN (NOT SEEN); Platelet Estimate ADEQ
[2018-04-13] MEDS ORDERED: predniSONE 20 MG TAB ONE (02:29)
--- NOTE | 2018-04-13 08:24 | RAD REPORT ---
EXAM DESCRIPTION: CT - Chest For Pe Angio - 04/13/2018 4:22 am CLINICAL HISTORY: Cough, shortness of breath A preliminary report was provided at the time of the study and reviewed prior to final report. COMPARISON: Portable chest April 12, CT chest April 06 TECHNIQUE: Dynamically enhanced 3 mm thick images of the chest were obtained during administration o f approximately 150mL Isovue 370 IV contrast. Coronal and oblique MIP reconstruction images were gene rated and reviewed. Exam utilizes a protocol to evaluate the pulmonary arterial tree. All CT scans are performed using dose optimization technique as appropriate and may include automated exposure control or mA/KV adjustment according to patient size. FINDINGS: No pulmonary emboli are identifiable down to the segmental branch level. The subsegmental or far peripheral branch assessment is limited by significant motion. This was present on the Septemb er 10 study as well. The aorta as imaged shows no acute or suspicious finding. No pericardial thickening or effusion. Posterior gutter atelectasis present on the right. Interstitial markings overall are prominent. Patie nt has new ground-glass opacification scattered throughout all lobes new from the prior examination. This could be pulmonary edema from failure/ volume overload, pneumonia or infectious/inflammatory res ponse. No pleural effusion or pleural thickening. A few small reactive type lymph nodes are identified. No chest wall masses or abnormal axillary lymph adenopathy. IMPRESSION: No pulmonary emboli seen to the segmental branch level. Subsegmental branch assessment i s limited by significant motion degradation. Multiple sites of ground-glass opacification scattered in the lung parenchyma. These are new from CT prior imaging. In the acute clinical setting multifocal pneumonia would be suspected. A noninfectious inflammatory process or pulmonary edema would be possible as well.
== END 2018-04-13 03:14 | disposition home or self-care (01) ==
LOC: ER 20:20 → 4TH 04-13 00:59 → UNDOADMOB 04-13 00:59 → 4TH 04-13 01:03 → ERHOLD 04-13 01:03 → ER 04-13 03:14
DX: J40 Bronchitis, not specified as acute or chronic (principal); F32.9 Major depressive disorder, single episode, unspecified; Z88.3 Allergy status to other anti-infective agents; Z88.8 Allergy status to other drugs, medicaments and biological substances
CPT/HCPCS: 36415; 71275; 80048; 85025; 87040; 94640; 96360; 96361; 99285; J7030; J7512; Q9967

== ENCOUNTER 2018-04-27 14:19 | Emergency (ER) | payer SELFPAY ==
--- NOTE | 2018-04-27 16:50 | EKG ---
Test Date: 2018-04-27 Test Time: 14:25:47 Offal Roller: SUHAS MEASUREMENT RESULTS: Intervals: Rate: 105 [place]: 124 QRSD: 90 QT: 338 QTc: 446 [place]: P: 23 [place]: 124 QRS: 33 T: 40 INTERPRETIVE STATEMENTS: Sinus tachycardia Cannot rule out Anterior infarct, age undetermined Abnormal ECG Compared to ECG 04/12/2018 13:25:47 Sinus rhythm no longer present Left posterior fascicular block no longer present Myocardial infarct finding still present Electronically Signed On 04-27-18 16:49:40 CDT by Romero Colin
[2018-04-27 17:01] LABS: Absolute Lymphocytes (CBC) 1.9 K/uL (0.7-4.9); Absolute Monocytes 0.9 K/uL (0.1-1.3); Hematocrit 40.4 % (36.0-45.0); MCH 28.4 pg (27.0-35.0); MCV 85.8 fL (80-100); MPV 7.9 fL (7.6-11.3); Monocytes % 7.1 % (3.3-12.3); RBC Red Blood Cell Count 4.71 M/uL (3.86-4.86)
[2018-04-27 17:02] LABS: Protime INR 0.97
--- NOTE | 2018-04-27 17:04 | RAD REPORT ---
EXAM DESCRIPTION: RAD - Chest Single View - 04/27/2018 4:57 pm CLINICAL HISTORY: CHEST PAIN Chest pain. COMPARISON: Chest Single View dated 04/12/2018; Chest Single View dated 04/06/2018; Chest Pa And Lat ( 2 Views) dated 01/23/2018; CHEST SINGLE VIEW dated 06/03/2008 FINDINGS: Portable technique limits examination quality. The lungs are grossly clear. The heart is normal in size. No displaced fractures. IMPRESSION: No acute intrathoracic process suspected.
[2018-04-27 17:19] LABS: ALT/SGPT 25 U/L (12-78); AST/SGOT 20 U/L (15-37); Albumin 3.6 g/dL (3.4-5.0); Alkaline Phosphatase 105 U/L (45-117); BUN Blood Urea Nitrogen 7 mg/dL (7-18); Bicarbonate 30 mmol/L (21-32); Bilirubin Direct 0.2 mg/dL (0-0.2); Bilirubin Total 0.5 mg/dL (0.2-1.0); Glucose Level 108 mg/dL (74-106); Magnesium 2.1 mg/dL (1.8-2.4); NT PRO-BNP 30 pg/mL (<125); Potassium 3.8 mmol/L (3.5-5.1); Protein, Total 7.6 g/dL (6.4-8.2); Sodium Level 138 mmol/L (136-145); Troponin (Emerg Dept Use Only) < 0.02 ng/mL (0.0-0.045)
[2018-04-27 17:25] LABS: Blood Morphology Comment NOT SEEN (NOT SEEN); Platelet Estimate ADEQ; Urine White Blood Cell Casts OK
[2018-04-27] MEDS ORDERED: NA CHLORIDE 0.9% 1,000 ML ONE (18:37)
--- NOTE | 2018-04-27 19:31 | RAD REPORT ---
EXAM DESCRIPTION: CT - Chest For Pe Angio - 04/27/2018 7:16 pm CLINICAL HISTORY: Chest pain, shortness of breath COMPARISON: Portable chest April 27, CT chest April 13 TECHNIQUE: Dynamically enhanced 3 mm thick images of the chest were obtained during administration o f approximately 150mL Isovue 370 IV contrast. Coronal and oblique MIP reconstruction images were gene rated and reviewed. Exam utilizes a protocol to evaluate the pulmonary arterial tree. All CT scans are performed using dose optimization technique as appropriate and may include automated exposure control or mA/KV adjustment according to patient size. FINDINGS: No pulmonary emboli are identified. The aorta as imaged shows no acute or suspicious finding. No pericardial thickening or effusion. Hear t size is upper normal. No focal mass or consolidation. No pleural effusion or pleural thickening. Lung markings are prominen t potentially masking early interstitial edema or infiltrate. Lung parenchyma is much improved compar ed with April 13. No mediastinal or hilar suspicious masses. No chest wall masses or abnormal axillary lymphadenopathy. Distal esophagus [place] are mildly prominent. Discrete mass is not seen. CT has limitation in esopha geal assessment. IMPRESSION: No pulmonary emboli identified. No focal lung parenchymal mass. Interstitial markings are prominent but overall lung pattern is subst antially improved since April 13.
--- NOTE | 2018-04-27 21:26 | ER ---
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 Transition of care: patient was not received from another setting of care. Onset of symptoms was April 27, 2018. Risk Assessment: Do you want to hurt yourself or someone else? Patient reports no desire to harm self or others. Care prior to arrival: None. 14:24 Method Of Arrival: Ambulatory hb 14:24 Acuity: JULIANE 3 hb 20:48 Initial Sepsis Screen: Does the patient meet any 2 criteria? No. Patient's initial ao sepsis screen is negative. Does the patient have a suspected source of infection? No. Patient's initial sepsis screen is negative. 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 - Social history:: Smoking status: Patient uses tobacco products, smokes one-half pack cigarettes per day. - Ebola Screening: : No symptoms or risks identified at this time. Screenin:17 Abuse screen: Denies threats or abuse. Denies injuries from another. Nutritional sg screening: No deficits noted. Tuberculosis screening: No symptoms or risk factors identified. Never had TB. Fall Risk None identified. Assessment: 15:00 General: Appears in no apparent distress. comfortable, well groomed, well developed, sg well nourished, Behavior is calm, cooperative, appropriate for age. Pain: Complains of pain in chest Pain currently is 6 out of 10 on a pain scale. Quality of pain is described as aching, pressure, sharp. Neuro: Level of Consciousness is awake, alert, obeys commands, Oriented to person, place, time, situation, Vacuum Cooker Operator are equal bilaterally Speech is normal, Facial symmetry appears normal. Cardiovascular: Heart tones S1 S2 present Capillary refill is brisk in bilateral fingers Patient's skin is warm and dry. Chest pain is denied. Respiratory: Airway is patent Respiratory effort is even, unlabored, Respiratory pattern is regular, symmetrical. GI: Abdomen is round non-distended. : No signs and/or symptoms were reported regarding the genitourinary system. EENT: Oral mucosa is moist. Throat is pink. Derm: Skin is pink, warm \\T\\ dry. Musculoskeletal: No signs and/or symptoms reported regarding the musculoskeletal system. 16:00 Reassessment: Patient appears in no apparent distress at this time. Patient and/or sg family updated on plan of care and expected duration. Pain level reassessed. Patient is alert, oriented x 3, equal unlabored respirations, skin warm/dry/pink. Reassessment: awaiting radiology results, awaiting lab results at this time, will continue to monitor. 18:19 Reassessment: Patient appears in no apparent distress at this time. Patient and/or sg family updated on plan of care and expected duration. Pain level reassessed. pt reports " i just want to know whats making me go through this and why i feel like my body isnt normal." verbal reassurance provided, pt is thankful, pt remains calm, awaiting new orders, pt family at bedside. 18:21 Reassessment: Patient appears in no apparent distress at this time. Patient is alert, sg oriented x 3, equal unlabored respirations, skin warm/dry/pink. Ran LANDERS at bedside updating pt on POC and results, awaiting dispo at this time. 19:33 General: Appears in no apparent distress. comfortable, well groomed, well developed, ao well nourished, Behavior is calm, cooperative, appropriate for age. Pain: Complains of pain in chest Pain radiates to back Pain began comes and goes. Neuro: Level of Consciousness is awake, alert, obeys commands, Oriented to person, place, time, situation, Vacuum Cooker Operator are equal bilaterally Speech is normal, Facial symmetry appears normal. Cardiovascular: Heart tones S1 S2 present Capillary refill is brisk in bilateral fingers Patient's skin is warm and dry. Respiratory: Airway is patent Respiratory effort is even, unlabored, Respiratory pattern is regular, symmetrical. GI: Abdomen is round non-distended, obese. : No signs and/or symptoms were reported regarding the genitourinary system. EENT: No signs and/or symptoms were reported regarding the EENT system. Derm: Skin is intact, Skin is pink, warm \\T\\ dry. Musculoskeletal: No signs and/or symptoms reported regarding the musculoskeletal system. 20:50 Reassessment: Patient appears in no apparent distress at this time. Patient and/or ao family updated on plan of care and expected duration. Pain level reassessed. Patient is alert, oriented x 3, equal unlabored respirations, skin warm/dry/pink. 2nd Troponin send. 21:49 Reassessment: DC instructions given to patient. Patient agree with discharge ao instructions and to follow up with PCP. Vital Signs: 14:25 BP 133 / 86; Pulse 106; Resp 16; Temp 97.0; Pulse Ox 100% on R/A; Pain 8/10; hb 15:46 BP 131 / 77; Pulse 103; Resp 18; Pulse Ox 97% on R/A; mh5 18:04 BP 134 / 88; Pulse 99; Resp 17 S; Temp 97.0; Pulse Ox 100% on R/A; Pain 6/10; sg 19:33 BP 112 / 64; Pulse 92; Resp 16; Pulse Ox 96% on R/A; Pain 4/10; ao 20:50 BP 123 / 72; Pulse 98; Resp 18; Pulse Ox 98% on R/A; ao 21:49 BP 116 / 72; Pulse 72; Resp 18; Pulse Ox 97% on R/A; Pain 0/10; ao ED Course: 14:19 Patient arrived in ED. sb2 14:25 Triage completed. hb 14:26 Arm band placed on left wrist. hb 14:31 EKG done, by ED staff, reviewed by Farooq Mari MD. dh3 16:14 Deon Amado, LELIA is Primary Nurse. sg 16:16 Ran Jeffers NP is PHCP. pm1 16:17 Lyric Levin MD is Attending Physician. pm1 16:50 Initial lab(s) drawn, by me, sent to lab. Missed attempt(s): 20 gauge in right em1 antecubital area. Bleeding controlled, band aid applied, catheter tip intact. 16:56 X-ray completed. Portable x-ray completed in exam room. Patient tolerated procedure ls3 well. 16:57 XRAY Chest (1 view) In Process Unspecified. EDMS 19:00 Inserted saline lock: 20 gauge in left antecubital area, using aseptic technique. Blood sg collected. 19:[address] via stretcher. eh 19:16 CT Chest For PE Angio In Process Unspecified. EDMS 19:16 CT completed. Patient tolerated procedure well. Patient moved back from CT. eh 20:42 Repeat lab(s) drawn. by me, sent to lab. lp1 20:47 Patient maintains SpO2 saturation greater than 95% on room air. ao 20:48 Patient has correct armband on for positive identification. Fall risk band placed. Bed ao in low position. Call light in reach. registered midwife on. Pulse ox on. NIBP on. 21:51 No provider procedures requiring assistance completed. IV discontinued, intact, ao bleeding controlled, No redness/swelling at site. Pressure dressing applied. Administered Medications: 19:24 Drug: NS 0.9% 1000 ml Route: IV; Rate: 1000 ml; Site: left antecubital; lp1 21:54 Follow up: IV Status: Completed infusion ao Outcome: 21:25 Discharge ordered by MD. pm1 21:51 Discharged to home ambulatory. ao 21:51 Condition: stable 21:51 Discharge instructions given to patient, Instructed on discharge instructions, follow up and referral plans. Demonstrated understanding of instructions, follow-up care, medications. 21:53 Patient left the ED. ao Signatures: Dispatcher [employer] EDDE Deon Amado RN RN sg Hagler, Ervin Flavio Bass em1 Anita Davis RN RN lp1 Shailesh Petty RN RN ao Ran Jeffers, LEESA PASSENGER RELATIONS REPRESENTATIVE pm1 Traci Zeng RN RN hb Martinez, Maria [facility] Aarti Howe 3 Shamika Ochoa 2 Cyrus Garza ls3 Corrections: (The following items were deleted from the chart) 14:26 14:25 Pulse 106bpm; Resp 16bpm; Pulse Ox 100% RA; Temp 97.0F; Pain 8/10; hb hb 21:53 21:49 BP 116 / 72; Pulse 72bpm; Resp 82bpm; Pulse Ox 97% RA; Pain 0/10; ao ao
--- NOTE | 2018-04-27 21:26 | EDPHYS ---
Physician Documentation [facility] Name: Gracie Ford Age: 43 yrs Sex: Female : 1975 Arrival Date: 04/27/2018 Time: 14:19 Bed 7 Private MD: ED Physician Lyric Levin HPI: 04/27 17:00 This 43 yrs old Female presents to ER via Ambulatory with complaints of Chest pm1 Pain. 17:00 The patient or guardian reports chest pain that is located primarily in the anterior pm1 chest wall, left. Onset: today. The pain does not radiate. Associated signs and symptoms: Pertinent negatives: abdominal pain, cough, diaphoresis, dizziness, nausea, shortness of breath, vomiting. The chest pain is described as sharp. Duration: The patient or guardian reports a single episode, that is still ongoing. Modifying factors: The symptoms are alleviated by nothing. the symptoms are aggravated by nothing. 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 - Social history:: Smoking status: Patient uses tobacco products, smokes one-half pack cigarettes per day. - Ebola Screening: : No symptoms or risks identified at this time. ROS: 17:00 Constitutional: Negative for fever, chills, and weight loss, Eyes: Negative for injury, pm1 pain, redness, and discharge, ENT: Negative for injury, pain, and discharge, Neck: Negative for injury, pain, and swelling. 17:00 Respiratory: Negative for shortness of breath, cough, wheezing, and pleuritic chest pain, Abdomen/GI: Negative for abdominal pain, nausea, vomiting, diarrhea, and constipation, Back: Negative for injury and pain, MS/Extremity: Negative for injury and deformity, Skin: Negative for injury, rash, and discoloration, Neuro: Negative for headache, weakness, numbness, tingling, and seizure. 17:00 Cardiovascular: Positive for chest pain, Negative for edema, orthopnea, palpitations. Exam: 17:00 Constitutional: This is a well developed, well nourished patient who is awake, alert, pm1 and in no acute distress. Head/Face: Normocephalic, atraumatic. Eyes: Pupils equal round and reactive to light, extra-ocular motions intact. Lids and lashes normal. Conjunctiva and sclera are non-icteric and not injected. Cornea within normal limits. Periorbital areas with no swelling, redness, or edema. ENT: Nares patent. No nasal discharge, no septal abnormalities noted. Tympanic membranes are normal and external auditory canals are clear. Oropharynx with no redness, swelling, or masses, exudates, or evidence of obstruction, uvula midline. Mucous membranes moist. Neck: Trachea midline, no thyromegaly or masses palpated, and no cervical lymphadenopathy. Supple, full range of motion without nuchal rigidity, or vertebral point tenderness. No Meningismus. Chest/axilla: Normal chest wall appearance and motion. Nontender with no deformity. No lesions are appreciated. Cardiovascular: Regular rate and rhythm with a normal S1 and S2. No gallops, murmurs, or rubs. Normal PMI, no JVD. No pulse deficits. Respiratory: Lungs have equal breath sounds bilaterally, clear to auscultation and percussion. No rales, rhonchi or wheezes noted. No increased work of breathing, no retractions or nasal flaring. Abdomen/GI: Soft, non-tender, with normal bowel sounds. No distension or tympany. No guarding or rebound. No evidence of tenderness throughout. Back: No spinal tenderness. No costovertebral tenderness. Full range of motion. Skin: Warm, dry with normal turgor. Normal color with no rashes, no lesions, and no evidence of cellulitis. MS/ Extremity: Pulses equal, no cyanosis. Neurovascular intact. Full, normal range of motion. 17:00 Neuro: Orientation: is normal, Motor: moves all fours. Vital Signs: 14:25 BP 133 / 86; Pulse 106; Resp 16; Temp 97.0; Pulse Ox 100% on R/A; Pain 8/10; hb 15:46 BP 131 / 77; Pulse 103; Resp 18; Pulse Ox 97% on R/A; mh5 18:04 BP 134 / 88; Pulse 99; Resp 17 S; Temp 97.0; Pulse Ox 100% on R/A; Pain 6/10; sg 19:33 BP 112 / 64; Pulse 92; Resp 16; Pulse Ox 96% on R/A; Pain 4/10; ao 20:50 BP 123 / 72; Pulse 98; Resp 18; Pulse Ox 98% on R/A; ao 21:49 BP 116 / 72; Pulse 72; Resp 18; Pulse Ox 97% on R/A; Pain 0/10; ao MDM: 16:18 Patient medically screened. pm1 21:25 Data reviewed: vital signs. Data interpreted: Pulse oximetry: on room air is 98 %. pm1 Interpretation: normal. Counseling: I had a detailed discussion with the patient and/or guardian regarding: the historical points, exam findings, and any diagnostic results supporting the discharge/admit diagnosis, lab results, radiology results, the need for outpatient follow up, to return to the emergency department if symptoms worsen or persist or if there are any questions or concerns that arise at home. 04/27 16:30 Order name: Basic Metabolic Panel; Complete Time: 17:31 pm1 04/27 16:30 Order name: CBC with Diff; Complete Time: 17:31 pm1 04/27 16:30 Order name: LFT's; Complete Time: 17:31 pm1 04/27 16:30 Order name: Magnesium; Complete Time: 17:31 pm1 04/27 16:30 Order name: NT PRO-BNP; Complete Time: 17:31 pm1 04/27 16:30 Order name: PT-INR; Complete Time: 17:11 pm1 04/27 16:30 Order name: Troponin (emerg Dept Use Only); Complete Time: 17:31 pm1 04/27 16:30 Order name: XRAY Chest (1 view); Complete Time: 17:11 pm1 04/27 16:30 Order name: EKG; Complete Time: 16:30 pm1 04/27 16:30 Order name: Cardiac monitoring; Complete Time: 18:18 pm1 04/27 17:03 Order name: CBC Smear Scan; Complete Time: 17:31 EDMS 04/27 18:29 Order name: CT Chest For PE Angio; Complete Time: 19:54 pm1 04/27 19:55 Order name: Troponin (emerg Dept Use Only); Complete Time: 21:24 pm1 04/27 16:30 Order name: EKG - Nurse/Tech; Complete Time: 18:18 pm1 04/27 16:30 Order name: IV Saline Lock; Complete Time: 18:18 pm1 04/27 16:30 Order name: Labs collected and sent; Complete Time: 18:19 pm1 04/27 16:30 Order name: O2 Per Protocol; Complete Time: 17:45 pm1 04/27 16:30 Order name: O2 Sat Monitoring; Complete Time: 17:45 pm1 04/27 16:30 Order name: Urine Dipstick-Ancillary (obtain specimen); Complete Time: 16:32 pm1 04/27 16:30 Order name: Urine Test (obtain specimen); Complete Time: 16:32 pm1 Administered Medications: 19:24 Drug: NS 0.9% 1000 ml Route: IV; Rate: 1000 ml; Site: left antecubital; lp1 21:54 Follow up: IV Status: Completed infusion ao Disposition: 04/27/18 21:25 Discharged to Home. Impression: Chest pain, unspecified. - Condition is Stable. - Discharge Instructions: Nonspecific Chest Pain. - Medication Reconciliation Form, Thank You Letter, Antibiotic Education, Prescription Opioid Use form. - Follow up: Emergency Department; When: As needed; Reason: Worsening of condition. Follow up: Private Physician; When: 2 - 3 days; Reason: Recheck today's complaints, Continuance of care, Re-evaluation by your physician. - Problem is new. - Symptoms have improved. Signatures: Dispatcher [employer] EDAL Anita Davis RN RN lp1 Shailesh Petty RN RN ao Ran Jeffers NP SPIDER ASSEMBLER pm1 Traci Zeng RN RN Corrections: (The following items were deleted from the chart) 21:53 21:25 04/27/2018 21:25 Discharged to Home. Impression: Chest pain, unspecified. ao Condition is Stable. Forms are Medication Reconciliation Form, Thank You Letter, Antibiotic Education, Prescription Opioid Use. Follow up: Emergency Department; When: As needed; Reason: Worsening of condition. Follow up: Private Physician; When: 2 - 3 days; Reason: Recheck today's complaints, Continuance of care, Re-evaluation by your physician. Problem is new. Symptoms have improved. pm1
== END 2018-04-27 21:53 | disposition home or self-care (01) ==
LOC: ER 14:19
DX: R07.9 Chest pain, unspecified (principal); F32.9 Major depressive disorder, single episode, unspecified; F17.210 Nicotine dependence, cigarettes, uncomplicated; Z88.3 Allergy status to other anti-infective agents; Z88.8 Allergy status to other drugs, medicaments and biological substances
CPT/HCPCS: 36415; 71045; 71275; 80048; 80076; 83735; 83880; 84484; 85025; 85610; 93005; 96360; 96361; 99285; J7030; Q9967

== ENCOUNTER 2018-05-21 14:15 | Emergency (ER) | payer SELFPAY ==
[2018-05-21] MEDS ORDERED: LORazepam 2 MG/ML VIAL ONE (15:36)
[2018-05-21 15:49] LABS: Absolute Lymphocytes (CBC) 1.5 K/uL (0.7-4.9); Absolute Monocytes 0.7 K/uL (0.1-1.3); Absolute Neutrophil 10.2 K/uL (1.8-8.0); Basophils % 0.3 % (0-1.3); Eosinophils % 0.6 % (0-4.4); Hematocrit 41.4 % (36.0-45.0); Lymphocytes % 12.2 % (15.3-44.8); MCH 28.4 pg (27.0-35.0); MCV 86.6 fL (80-100); MPV 7.5 fL (7.6-11.3); RBC Red Blood Cell Count 4.78 M/uL (3.86-4.86)
[2018-05-21 16:01] LABS: BUN Blood Urea Nitrogen 6 mg/dL (7-18); Bicarbonate 30 mmol/L (21-32); Glucose Level 96 mg/dL (74-106); Potassium 3.8 mmol/L (3.5-5.1); Sodium Level 138 mmol/L (136-145)
--- NOTE | 2018-05-21 17:24 | ER ---
Nurse's Notes [facility] Name: Gracie Ford Age: 43 yrs Sex: Female : 1975 Arrival Date: 05/21/2018 Time: 14:18 Bed 18 Private MD: None, None Diagnosis: Panic disorder [episodic paroxysmal anxiety] without agoraphobia Presentation: 05/21 14:26 Presenting complaint: Patient states: Anxiety x 3 days, stated "I feel like I am hb jumping out of my skin>'. Transition of care: patient was not received from another setting of care. Onset of symptoms was May 19, 2018. Risk Assessment: Do you want to hurt yourself or someone else? Patient reports no desire to harm self or others. Care prior to arrival: None. 14:26 Method Of Arrival: Ambulatory hb 14:26 Acuity: JULIANE 3 hb 14:35 Initial Sepsis Screen: Does the patient meet any 2 criteria? No. Patient's initial tw2 sepsis screen is negative. Does the patient have a suspected source of infection? No. Patient's initial sepsis screen is negative. Historical: - Allergies: 14:29 clindamycin HCl; hb 14:29 Reglan; hb 14:29 Zofran; hb 14:29 Phenergan; hb - Home Meds: 14:29 methadone 40 mg Oral TbSO 1 tab once daily for Opioid Dependence [Active]; hb - PMHx: 14:29 Depression; hb - PSHx: 14:29 None; hb - Immunization history:: Adult Immunizations. - Social history:: Smoking status: Patient uses tobacco products, smokes one-half pack cigarettes per day. - Ebola Screening: : Patient denies travel to an Ebola-affected area in the 21 days before illness onset. Screenin:35 Abuse screen: Denies threats or abuse. Nutritional screening: No deficits noted. tw2 Tuberculosis screening: No symptoms or risk factors identified. Fall Risk None identified. Assessment: 14:34 General: Appears uncomfortable, Behavior is anxious, crying. Pain: Denies pain. Neuro: tw2 Level of Consciousness is awake, alert, obeys commands, Oriented to person, place, time, situation. Cardiovascular: Denies chest pain, shortness of breath, Heart tones S1 S2 Capillary refill < 3 seconds Patient's skin is warm and dry. Respiratory: Airway is patent Respiratory effort is even, unlabored, Respiratory pattern is regular, symmetrical, Breath sounds are clear bilaterally. GI: No signs and/or symptoms were reported involving the gastrointestinal system. : No signs and/or symptoms were reported regarding the genitourinary system. EENT: No signs and/or symptoms were reported regarding the EENT system. Derm: Reports i feel like i am just itching on the inside. Musculoskeletal: Range of motion: intact in all extremities. 14:55 Reassessment: Patient appears in no apparent distress at this time. Patient is alert, rv oriented x 3, equal unlabored respirations, skin warm/dry/pink. Vital Signs: 14:27 BP 138 / 77; Pulse 96; Resp 17; Temp 98.2; Pulse Ox 99% on R/A; Pain 0/10; hb 17:28 BP 116 / 81; Pulse 85; Pulse Ox 98% on R/A; rv ED Course: 14:18 Patient arrived in ED. sb2 14:18 None, None is Private Physician. sb2 14:27 Triage completed. hb 14:28 Arm band placed on. hb 14:31 Rizwan Phelan PA is PHCP. jr8 14:31 Farooq Mari MD is Attending Physician. jr8 14:33 Lorena Vincent, LELIA is Primary Nurse. tw2 14:35 Bed in low position. Call light in reach. Pulse ox on. NIBP on. tw2 14:51 Report given to LELIA Schumacher. tw2 14:55 Primary Nurse role handed off by Lorena Vincent, LELIA tw2 15:25 Initial lab(s) drawn, by nd, sent to lab. Inserted saline lock: 20 gauge in left rv antecubital area, using aseptic technique. Blood collected. 15:46 EKG done, by radiological technologist. reviewed by Rizwan THORNTON. sm3 17:29 No provider procedures requiring assistance completed. IV discontinued, bleeding rv controlled, No redness/swelling at site. Pressure dressing applied. Administered Medications: 15:39 Drug: Ativan 1 mg Route: IVP; Site: left antecubital; rv 15:57 Follow up: Response: No adverse reaction rv Outcome: 17:23 Discharge ordered by . jr8 17:35 Discharged to home ambulatory. rv 17:35 Condition: improved 17:35 Discharge instructions given to patient, Instructed on discharge instructions, follow up and referral plans. medication usage, Demonstrated understanding of instructions, follow-up care, medications, Prescriptions given X 1. 17:36 Patient left the ED. rv Signatures: Rizwan Phelan PA PA jr8 Traci Zeng, RN RN Lorena Vincent RN RN tw2 Shamika Ochoa 2 Codi Bowen 3 Endy Nails RN RN rv
--- NOTE | 2018-05-21 17:24 | EDPHYS ---
Physician Documentation [facility] Name: Gracie Ford Age: 43 yrs Sex: Female : 1975 Arrival Date: 05/21/2018 Time: 14:18 Bed 18 Private MD: None, None ED Physician Farooq Mari HPI: 05/21 16:01 This 43 yrs old Female presents to ER via Ambulatory with complaints of jr8 Anxiety. 16:01 Patient stated that she has been off of her zoloft. Has been having irritability and jr8 anxiety feeling that is getting worse. Feels that she is out of control. Does not know if anything else is going on . Severity of symptoms: At their worst the symptoms were moderate in the emergency department the symptoms are unchanged. It is unknown whether or not the patient has had similar symptoms in the past. The patient has not recently seen a physician. Historical: - Allergies: 14:29 clindamycin HCl; hb 14:29 Reglan; hb 14:29 Zofran; hb 14:29 Phenergan; hb - Home Meds: 14:29 methadone 40 mg Oral TbSO 1 tab once daily for Opioid Dependence [Active]; hb - PMHx: 14:29 Depression; hb - PSHx: 14:29 None; hb - Immunization history:: Adult Immunizations. - Social history:: Smoking status: Patient uses tobacco products, smokes one-half pack cigarettes per day. - Ebola Screening: : Patient denies travel to an Ebola-affected area in the 21 days before illness onset. ROS: 16:01 Eyes: Negative for injury, pain, redness, and discharge, ENT: Negative for injury, jr8 pain, and discharge, Neck: Negative for injury, pain, and swelling, Cardiovascular: Negative for chest pain, palpitations, and edema, Respiratory: Negative for shortness of breath, cough, wheezing, and pleuritic chest pain, Abdomen/GI: Negative for abdominal pain, nausea, vomiting, diarrhea, and constipation, Back: Negative for injury and pain, MS/Extremity: Negative for injury and deformity, Skin: Negative for injury, rash, and discoloration, Neuro: Negative for headache, weakness, numbness, tingling, and seizure. 16:01 Psych: Positive for anxiety. Exam: 16:01 Eyes: Pupils equal round and reactive to light, extra-ocular motions intact. Lids and jr8 lashes normal. Conjunctiva and sclera are non-icteric and not injected. Cornea within normal limits. Periorbital areas with no swelling, redness, or edema. ENT: Nares patent. No nasal discharge, no septal abnormalities noted. Tympanic membranes are normal and external auditory canals are clear. Oropharynx with no redness, swelling, or masses, exudates, or evidence of obstruction, uvula midline. Mucous membranes moist. Neck: Trachea midline, no thyromegaly or masses palpated, and no cervical lymphadenopathy. Supple, full range of motion without nuchal rigidity, or vertebral point tenderness. No Meningismus. Cardiovascular: Regular rate and rhythm with a normal S1 and S2. No gallops, murmurs, or rubs. Normal PMI, no JVD. No pulse deficits. Respiratory: Lungs have equal breath sounds bilaterally, clear to auscultation and percussion. No rales, rhonchi or wheezes noted. No increased work of breathing, no retractions or nasal flaring. Abdomen/GI: Soft, non-tender, with normal bowel sounds. No distension or tympany. No guarding or rebound. No evidence of tenderness throughout. Back: No spinal tenderness. No costovertebral tenderness. Full range of motion. Skin: Warm, dry with normal turgor. Normal color with no rashes, no lesions, and no evidence of cellulitis. MS/ Extremity: Pulses equal, no cyanosis. Neurovascular intact. Full, normal range of motion. Neuro: Awake and alert, GCS 15, oriented to person, place, time, and situation. Cranial nerves II-XII grossly intact. Motor strength 5/5 in all extremities. Sensory grossly intact. Cerebellar exam normal. Normal gait. 16:01 Psych: Behavior/mood is cooperative, anxious, Affect is animated, Oriented to person, place, time, Patient has no thoughts/intents to harm self or others. Judgement / Insight is normal. Memory is normal. Delusions/hallucinations are not present. Vital Signs: 14:27 BP 138 / 77; Pulse 96; Resp 17; Temp 98.2; Pulse Ox 99% on R/A; Pain 0/10; hb 17:28 BP 116 / 81; Pulse 85; Pulse Ox 98% on R/A; rv MDM: 14:31 Patient medically screened. jr8 17:22 Data reviewed: vital signs, nurses notes, lab test result(s), EKG, and as a result, I jr8 will discharge patient. Data interpreted: Pulse oximetry: on room air is 99 %. Interpretation: normal. Counseling: I had a detailed discussion with the patient and/or guardian regarding: the historical points, exam findings, and any diagnostic results supporting the discharge/admit diagnosis, lab results, the need for outpatient follow up, a family practitioner, to return to the emergency department if symptoms worsen or persist or if there are any questions or concerns that arise at home. Response to treatment: the patient's symptoms have markedly improved after treatment. 05/21 15:16 Order name: CBC with Diff; Complete Time: 15:58 jr8 05/21 15:16 Order name: Basic Metabolic Panel; Complete Time: 16:02 jr8 05/21 15:16 Order name: IV; Complete Time: 15:39 jr8 05/21 15:16 Order name: EKG - Nurse/Tech; Complete Time: 15:57 jr8 05/21 15:16 Order name: EKG; Complete Time: 15:17 jr8 Administered Medications: 15:39 Drug: Ativan 1 mg Route: IVP; Site: left antecubital; rv 15:57 Follow up: Response: No adverse reaction rv Disposition: 17:59 Co-signature as Attending Physician, Farooq Mari MD. rn Disposition: 05/21/18 17:23 Discharged to Home. Impression: Panic disorder [episodic paroxysmal anxiety] without agoraphobia. - Condition is Stable. - Discharge Instructions: Panic Attacks. - Prescriptions for Ativan 0.5 mg Oral Tablet - take 1 tablet by ORAL route every 8 hours As needed; 20 tablet. - Medication Reconciliation Form, Thank You Letter, Antibiotic Education, Prescription Opioid Use form. - Follow up: Private Physician; When: 2 - 3 days; Reason: If symptoms return, Recheck today's complaints, Continuance of care, Re-evaluation by your physician. - Problem is new. - Symptoms have improved. Signatures: Dispatcher [employer] EDFarooq Phan MD MD rn Roszak, Josh, PA PA jr8 Traci Zeng RN RN Endy Pichardo RN RN rv Corrections: (The following items were deleted from the chart) 17:36 17:23 05/21/2018 17:23 Discharged to Home. Impression: Panic disorder [episodic rv paroxysmal anxiety] without agoraphobia. Condition is Stable. Forms are Medication Reconciliation Form, Thank You Letter, Antibiotic Education, Prescription Opioid Use. Follow up: Private Physician; When: 2 - 3 days; Reason: If symptoms return, Recheck today's complaints, Continuance of care, Re-evaluation by your physician. Problem is new. Symptoms have improved. jr8
--- NOTE | 2018-05-22 07:30 | EKG ---
Test Date: 2018-05-21 Test Time: 15:44:12 Remote Pilot Operator: PARVEZ MEASUREMENT RESULTS: Intervals: Rate: 64 [place]: 116 QRSD: 92 QT: 378 QTc: 389 [place]: P: 3 [place]: 116 QRS: 37 T: 40 INTERPRETIVE STATEMENTS: Normal sinus rhythm Possible Anterior infarct, age undetermined Abnormal ECG Compared to ECG 04/27/2018 14:25:47 Sinus tachycardia no longer present Myocardial infarct finding still present Electronically Signed On 05-22-18 07:27:47 CDT by Ravin Alston
== END 2018-05-21 17:36 | disposition home or self-care (01) ==
LOC: ER 14:15
DX: F41.0 Panic disorder [episodic paroxysmal anxiety] (principal); F17.210 Nicotine dependence, cigarettes, uncomplicated; F32.9 Major depressive disorder, single episode, unspecified; Z88.3 Allergy status to other anti-infective agents; Z88.8 Allergy status to other drugs, medicaments and biological substances
CPT/HCPCS: 36415; 80048; 85025; 93005; 96374; 99284

== ENCOUNTER 2018-07-02 12:50 | Emergency (ER) | payer SELFPAY ==
[2018-07-02] MEDS ORDERED: DIAZEPAM 5 MG TABLET ONE (14:00)
--- NOTE | 2018-07-02 15:59 | EDPHYS ---
Physician Documentation [facility] Name: Gracie Ford Age: 43 yrs Sex: Female : 1975 Arrival Date: 07/02/2018 Time: 12:51 Bed 25 Private MD: Jenn Damon H ED Physician Farooq Mari HPI: 07/02 15:43 This 43 yrs old Female presents to ER via Ambulatory with complaints of PANIC rn ATTACK. 15:43 The patient presents to the emergency department with anxiety. Onset: The rn symptoms/episode began/occurred yesterday. Associated signs and symptoms: Pertinent positives; anxiety, palpitations, Pertinent negatives: chest pain, fever, hallucinations, homicidal ideation, substance abuse, suicide ideation. Severity of symptoms: At their worst the symptoms were moderate in the emergency department the symptoms are unchanged. The patient has experienced similar episodes in the past. The patient has not recently seen a physician. Reports episode similar but slightly worse than previous anxiety attacks, no fever/chest pain, no vomiting/diarrhea, no abd pain. No drug use. . 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 - Social history:: Smoking status: Patient uses tobacco products. - Ebola Screening: : No symptoms or risks identified at this time. - Family history:: not pertinent. - Hospitalizations: : No recent hospitalization is reported. ROS: 15:43 Constitutional: Negative for fever, chills, and weight loss, Eyes: Negative for injury, rn pain, redness, and discharge, Neck: Negative for injury, pain, and swelling, Cardiovascular: Negative for chest pain, and edema, Respiratory: Negative for shortness of breath, cough, wheezing, and pleuritic chest pain, Abdomen/GI: Negative for abdominal pain, nausea, vomiting, diarrhea, and constipation, MS/Extremity: Negative for injury and deformity, Skin: Negative for injury, rash, and discoloration, Neuro: Negative for headache, weakness, and seizure. Exam: 15:43 Constitutional: This is a well developed, well nourished patient who is awake, alert, rn tearful Head/Face: Normocephalic, atraumatic. Eyes: Pupils equal round and reactive to light, extra-ocular motions intact. Lids and lashes normal. Conjunctiva and sclera are non-icteric and not injected. Cornea within normal limits. Periorbital areas with no swelling, redness, or edema. ENT: MMM Cardiovascular: Regular rate and rhythm with a normal S1 and S2. No pulse deficits. Respiratory: Lungs have equal breath sounds bilaterally, clear to auscultation. No increased work of breathing, no retractions or nasal flaring. Abdomen/GI: soft, non-tender Skin: Warm, dry with normal turgor. Normal color with no rashes, no lesions, and no evidence of cellulitis. MS/ Extremity: Pulses equal, no cyanosis. Neurovascular intact. Full, normal range of motion. Equal circumference. Neuro: Awake and alert, GCS 15, oriented to person, place, time, and situation. Cranial nerves II-XII grossly intact. Motor strength 5/5 in all extremities. Sensory grossly intact. Cerebellar exam normal. Normal gait. Vital Signs: 13:09 BP 138 / 74; Pulse 90; Resp 20; Temp 98.8; Pulse Ox 98% on R/A; Weight 79.38 kg; Height kr2 5 ft. 2 in. (157.48 cm); Pain 0/10; 15:24 BP 113 / 69; Pulse 77; Resp 16; Temp 98.4(O); Pulse Ox 98% on R/A; Pain 0/10; ls4 16:26 BP 121 / 74; Pulse 64; Resp 16; Pulse Ox 97% on R/A; Pain 0/10; ls4 13:09 Body Mass Index 32.01 (79.38 kg, 157.48 cm) kr2 MDM: 13:06 Patient medically screened. rn 15:57 Differential diagnosis: depression, anxiety. Data reviewed: vital signs, nurses notes, rn EKG, and as a result, I will discharge patient. Counseling: I had a detailed discussion with the patient and/or guardian regarding: the historical points, exam findings, and any diagnostic results supporting the discharge/admit diagnosis, the need for outpatient follow up, to return to the emergency department if symptoms worsen or persist or if there are any questions or concerns that arise at home. Response to treatment: the patient's symptoms have mildly improved after treatment, and as a result, I will discharge patient. Special discussion: I discussed with the patient/guardian in detail that at this point there is no indication for admission to the hospital. It is understood, however, that if the symptoms persist or worsen the patient needs to return immediately for re-evaluation. 15:57 ED course: Has f/u with psychiatry next week, feels better. . rn 07/02 13:11 Order name: EKG; Complete Time: 13:11 rn 07/02 13:11 Order name: EKG - Nurse/Tech; Complete Time: 14:25 rn Administered Medications: 13:55 Drug: Valium 5 mg Route: PO; ls4 14:51 Follow up: Response: No adverse reaction; Anxiety decreased ls4 Disposition: 07/02/18 15:58 Discharged to Home. Impression: Anxiety disorder, unspecified. - Condition is Stable. - Discharge Instructions: Panic Attacks, Generalized Anxiety Disorder. - Prescriptions for Valium 2 mg Oral Tablet - take 1 tablet by ORAL route every 8-12 hours As needed; 5 tablet. - Medication Reconciliation Form, Thank You Letter, Antibiotic Education, Prescription Opioid Use form. - Follow up: Jenn Damon DO; When: As needed; Reason: Recheck today's complaints, Re-evaluation by your physician. - Problem is new. - Symptoms have improved. Signatures: Farooq Mari MD MD rn Reaves, Karey RN RN kr2 Sabra Marcelo RN RN ls4 Corrections: (The following items were deleted from the chart) 16:21 15:58 07/02/2018 15:58 Discharged to Home. Impression: Anxiety disorder, unspecified. ls4 Condition is Stable. Forms are Medication Reconciliation Form, Thank You Letter, Antibiotic Education, Prescription Opioid Use. Follow up: Jenn Damon; When: As needed; Reason: Recheck today's complaints, Re-evaluation by your physician. Problem is new. Symptoms have improved. rn 16:38 16:21 07/02/2018 15:58 Discharged to Home. Impression: Anxiety disorder, unspecified. ls4 Condition is Stable. Discharge Instructions: Panic Attacks, Generalized Anxiety Disorder. Prescriptions for Valium 2 mg Oral Tablet - take 1 tablet by ORAL route every 8-12 hours As needed; 5 tablet. and Forms are Medication Reconciliation Form, Thank You Letter, Antibiotic Education, Prescription Opioid Use. Follow up: Jenn Damon; When: As needed; Reason: Recheck today's complaints, Re-evaluation by your physician. Problem is new. Symptoms have improved. ls4
--- NOTE | 2018-07-02 15:59 | ER ---
Nurse's Notes [facility] Name: Gracie Ford Age: 43 yrs Sex: Female : 1975 Arrival Date: 07/02/2018 Time: 12:51 Bed 25 Private MD: Jenn Daomn H Diagnosis: Anxiety disorder, unspecified Presentation: 07/02 13:05 Presenting complaint: Patient states: I just keep having panic attacks, I have problems kr2 with anxiety, I take Zoloft and Methadone. I do not know why or what triggers them. It just feels like my heart is racing and it takes my breath away. Transition of care: patient was not received from another setting of care. Onset of symptoms was July 02, 2018. Risk Assessment: Do you want to hurt yourself or someone else? Patient reports no desire to harm self or others. Initial Sepsis Screen: Does the patient meet any 2 criteria? No. Patient's initial sepsis screen is negative. Does the patient have a suspected source of infection? No. Patient's initial sepsis screen is negative. Care prior to arrival: None. 13:05 Method Of Arrival: Ambulatory kr2 13:05 Acuity: JULIANE 4 kr2 Triage Assessment: 13:10 General: Appears in no apparent distress. well groomed, well developed, well nourished, kr2 Behavior is cooperative, anxious, crying. Pain: Denies pain. 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 - Social history:: Smoking status: Patient uses tobacco products. - Ebola Screening: : No symptoms or risks identified at this time. - Family history:: not pertinent. - Hospitalizations: : No recent hospitalization is reported. Screenin:11 Abuse screen: Denies threats or abuse. Denies injuries from another. Nutritional kr2 screening: No deficits noted. Tuberculosis screening: No symptoms or risk factors identified. Fall Risk None identified. Assessment: 13:10 General: Appears distressed, Behavior is cooperative, anxious. Pain: Denies pain. ls4 Neuro: No deficits noted. Cardiovascular: Reports None. Respiratory: Reports labored breathing Airway is patent Respiratory effort is even, unlabored, Respiratory pattern is regular, Breath sounds are clear bilaterally. Musculoskeletal: No deficits noted. 14:10 Reassessment: Patient and/or family updated on plan of care and expected duration. Pain ls4 level reassessed. Patient is alert, oriented x 3, equal unlabored respirations, skin warm/dry/pink. 15:23 Reassessment: Patient and/or family updated on plan of care and expected duration. Pain ls4 level reassessed. Patient is alert, oriented x 3, equal unlabored respirations, skin warm/dry/pink. pt is still anxious. does not know why. but improved since valium, "anxiety is just not completely gone". Vital Signs: 13:09 BP 138 / 74; Pulse 90; Resp 20; Temp 98.8; Pulse Ox 98% on R/A; Weight 79.38 kg; Height kr2 5 ft. 2 in. (157.48 cm); Pain 0/10; 15:24 BP 113 / 69; Pulse 77; Resp 16; Temp 98.4(O); Pulse Ox 98% on R/A; Pain 0/10; ls4 16:26 BP 121 / 74; Pulse 64; Resp 16; Pulse Ox 97% on R/A; Pain 0/10; ls4 13:09 Body Mass Index 32.01 (79.38 kg, 157.48 cm) kr2 ED Course: 12:51 Patient arrived in ED. sb2 12:51 Jenn Dmaon DO is Private Physician. sb2 13:06 Farooq Mari MD is Attending Physician. rn 13:07 Triage completed. kr2 13:10 Arm band placed on left wrist. kr2 13:11 Patient has correct armband on for positive identification. Bed in low position. Call kr2 light in reach. Side rails up X 1. Pulse ox on. NIBP on. 13:40 EKG done, by certified master safe technician. reviewed by Farooq Mari MD. at1 13:45 Sabra Marcelo, RN is Primary Nurse. ls4 14:56 No provider procedures requiring assistance completed. Patient did not have IV access ls4 during this emergency room visit. 15:58 Jenn Damon DO is Referral Physician. rn Administered Medications: 13:55 Drug: Valium 5 mg Route: PO; ls4 14:51 Follow up: Response: No adverse reaction; Anxiety decreased ls4 Outcome: 15:58 Discharge ordered by . rn 16:27 Discharged to home ambulatory, with family. ls4 16:27 Condition: stable 16:27 Discharge instructions given to patient, Instructed on discharge instructions, follow up and referral plans. medication usage, Demonstrated understanding of instructions, follow-up care, medications, Prescriptions given X 1. 16:38 Patient left the ED. ls4 Signatures: Farooq Mari MD MD rn Gonzales, Amanda, service line bus cleaner EKG Tat1 Jessy Ruiz RN RN kr2 Shamika Ochoa sb2 Sabra Marcelo, RN RN ls4 Corrections: (The following items were deleted from the chart) 13:10 13:05 Presenting complaint: Patient states: I just keep having panic attacks, I have kr2 problems with anxiety, I take Zoloft and Methadone. I do not know why or what triggers them. kr2
--- NOTE | 2018-07-03 08:31 | EKG ---
Test Date: 2018-07-02 Test Time: 13:25:50 Funeral Director'S Assistant: RIKKI MEASUREMENT RESULTS: Intervals: Rate: 75 UT: 142 QRSD: 90 QT: 378 QTc: 422 [place]: P: 22 UT: 142 QRS: 61 T: 57 INTERPRETIVE STATEMENTS: Normal sinus rhythm Cannot rule out Anterior infarct, age undetermined Abnormal ECG Compared to ECG 05/21/2018 15:44:12 No significant changes Electronically Signed On 07-03-18 08:31:05 AUTOMOTIVE ENGINEERING TECHNICIAN by Romero Colin
== END 2018-07-02 16:38 | disposition home or self-care (01) ==
LOC: ER 12:50
DX: F41.9 Anxiety disorder, unspecified (principal); F32.9 Major depressive disorder, single episode, unspecified; Z72.0 Tobacco use; Z88.3 Allergy status to other anti-infective agents; Z88.8 Allergy status to other drugs, medicaments and biological substances
CPT/HCPCS: 93005; 99284

== ENCOUNTER 2020-01-27 12:22 | Emergency (ER) | payer SELFPAY ==
--- OUTSIDE RECORDS SUMMARY | 2020-01-27 15:18 | XMS REPORT | Continuity of Care Document ---
:1975 Author Organization [facility] t Address [address] [place] [address] Dr. Claire [address] [place] [id number] Care Team Providers Name Role Phone Unavailable Unavailable Unavailable Problems This patient has no known problems. Allergies, Adverse Reactions, Alerts This patient has no known allergies or adverse reactions. Medications This patient has no known medications. Procedures This patient has no known procedures. Results This patient has no known results.
[2020-01-27] MEDS ORDERED: LIDOCAINE 1% MPF 5 ML VIAL ONE (15:32)
[2020-01-27] MEDS ORDERED: BUPIVACAINE 0.5% PF 10 ML VIAL ONE (15:32)
--- NOTE | 2020-01-27 16:56 | EDPHYS ---
Physician Documentation [facility] Name: Gracie Ford Age: 45 yrs Sex: Female : 1975 Arrival Date: 01/27/2020 Time: 12:24 Bed 23 Private MD: ED Physician Gregg Escobedo HPI: 01/26 14:26 This 45 yrs old Female presents to ER via Ambulatory with complaints of jmm Abscess. 14:26 The patient presents with an abscess of the right scapular area. Onset: The jmm symptoms/episode began/occurred gradually, 4 day(s) ago. Possible cause(s): cyst. Associated signs and symptoms: Pertinent positives: drainage, erythema. Modifying factors: the symptoms are alleviated by nothing, the symptoms are aggravated by nothing. The patient has experienced similar episodes in the past. 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 - Social history:: Smoking status: Patient reports the use of cigarette tobacco products, smokes one-half pack cigarettes per day. ROS: 14:26 Constitutional: Negative for fever, chills, and weight loss, Cardiovascular: Negative jmm for chest pain, palpitations, and edema, Respiratory: Negative for shortness of breath, cough, wheezing, and pleuritic chest pain. 14:26 Skin: Positive for erythema, swelling. 14:26 All other systems are negative. Exam: 14:26 Constitutional: This is a well developed, well nourished patient who is awake, alert, jmm and in no acute distress. Head/Face: atraumatic. Eyes: EOMI, no conjunctival erythema appreciated ENT: Moist Mucus Membranes Neck: Trachea midline, Supple Chest/axilla: Normal chest wall appearance and motion. Cardiovascular: Regular rate and rhythm. No edema appreciated Respiratory: Normal respirations, no respiratory distress appreciated Abdomen/GI: Non distended, soft Back: Normal ROM Skin: General appearance color normal MS/ Extremity: Moves all extremities, no obvious deformities appreciated, no edema noted to the lower extremities Neuro: Awake and alert, normal gait Psych: Behavior is normal, Mood is normal, Patient is cooperative and pleasant Vital Signs: 12:28 BP 132 / 77; Pulse 100; Resp 17; Temp 97.3; Pulse Ox 100% ; Weight 81.65 kg; Height 5 jl7 ft. 2 in. (157.48 cm); Pain 7/10; 12:28 Body Mass Index 32.92 (81.65 kg, 157.48 cm) jl7 Procedures: 16:53 I \T\ D: Incision and drainage was performed for an abscess of the right scapular area jmm Prepped with Betadine, Anesthetized with 10 ml's 1% Lidocaine. Incised with #11 blade. Drained large amount purulent fluid. Packed with sterile gauze, iodoform gauze, Dressing: sterile 4x4 gauze, the patient tolerated the procedure well. MDM: 14:23 Patient medically screened. [facility] 16:53 Data reviewed: vital signs, nurses notes. Counseling: I had a detailed discussion with [facility] the patient and/or guardian regarding: the historical points, exam findings, and any diagnostic results supporting the discharge/admit diagnosis, the need for outpatient follow up, to return to the emergency department if symptoms worsen or persist or if there are any questions or concerns that arise at home. Administered Medications: 15:25 Drug: Lidocaine (1 %) 20 ml {Note: per Rosey Mickail .} Volume: 20 ml; Route: ls4 Infiltration; 15:35 Follow up: Response: No adverse reaction ls4 15:26 Drug: Marcaine (0.5 %) 10 ml {Note: per rosey mickail .} Volume: 10 ml; Route: ls4 Infiltration; 15:35 Follow up: Response: No adverse reaction ls4 Disposition: 01/27 08:44 Co-signature as Attending Physician, Gregg Escobedo MD I agree with the assessment and kdr plan of care. Disposition: 01/27/20 16:55 Discharged to Home. Impression: Sebaceous cyst. - Condition is Stable. - Discharge Instructions: Incision and Drainage, Care After. - Prescriptions for Bactrim DS 800- 160 mg Oral Tablet - take 1 tablet by ORAL route every 12 hours for 10 days; 20 tablet. - Medication Reconciliation Form, Thank You Letter, Antibiotic Education, Prescription Opioid Use form. - Follow up: Private Physician; When: 2 - 3 days; Reason: Recheck today's complaints, Continuance of care, Re-evaluation by your physician. Signatures: Gregg Escobedo MD MD kdr Mickail, Joel, PA PA jmm Leal, Jahala, RN RN jl7 Sabra Marcelo RN RN ls4 Corrections: (The following items were deleted from the chart) 01/26 17:20 16:55 01/27/2020 16:55 Discharged to Home. Impression: Sebaceous cyst. Condition is ls4 Stable. Forms are Medication Reconciliation Form, Thank You Letter, Antibiotic Education, Prescription Opioid Use. Follow up: Private Physician; When: 2 - 3 days; Reason: Recheck today's complaints, Continuance of care, Re-evaluation by your physician. chelle
--- NOTE | 2020-01-27 16:56 | ER ---
Nurse's Notes [facility] Name: Gracie Ford Age: 45 yrs Sex: Female : 1975 Arrival Date: 01/27/2020 Time: 12:24 Bed 23 Private MD: Diagnosis: Sebaceous cyst Presentation: 01/26 12:28 Chief complaint: Patient states: Abscess on right posterior shoulder x 2 days, redness jl7 and swelling noted. Coronavirus screen: Proceed with normal triage. Patient denies a cough. Patient denies shortness of breath or difficulty breathing. Patient denies measured and/or subjective temperature greater than 100.4F prior to today's visit. Patient denies travel on a cruise ship or to a country the [facility] currently lists as an affected area. Patient denies contact with known and/or suspected case of COVID-19. Ebola Screen: No symptoms or risks identified at this time. Initial Sepsis Screen: Does the patient meet any 2 criteria? No. Patient's initial sepsis screen is negative. Does the patient have a suspected source of infection? No. Patient's initial sepsis screen is negative. Risk Assessment: Do you want to hurt yourself or someone else? Patient reports no desire to harm self or others. Onset of symptoms was January 25, 2020. Care prior to arrival: None. 12:28 Method Of Arrival: Ambulatory jl7 12:28 Acuity: JULIANE 4 jl7 Triage Assessment: 12:31 General: Appears in no apparent distress. uncomfortable, Behavior is calm, cooperative, jl7 appropriate for age, drowsy. Pain: Complains of pain in right scapular area Pain currently is 7 out of 10 on a pain scale. 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 - Social history:: Smoking status: Patient reports the use of cigarette tobacco products, smokes one-half pack cigarettes per day. Screenin:04 Abuse screen: Denies threats or abuse. Denies injuries from another. Nutritional ls4 screening: No deficits noted. Tuberculosis screening: No symptoms or risk factors identified. Fall Risk None identified. Assessment: 14:03 General: Appears in no apparent distress. comfortable. Pain: Complains of pain in right ls4 scapular area Pain currently is 7 out of 10 on a pain scale. Neuro: No deficits noted. Cardiovascular: No deficits noted. Respiratory: No deficits noted. Vital Signs: 12:28 BP 132 / 77; Pulse 100; Resp 17; Temp 97.3; Pulse Ox 100% ; Weight 81.65 kg; Height 5 jl7 ft. 2 in. (157.48 cm); Pain 7/10; 12:28 Body Mass Index 32.92 (81.65 kg, 157.48 cm) 7 ED Course: 12:24 Patient arrived in ED. ag5 12:30 Triage completed. 7 12:31 Arm band placed on right wrist. [facility] 13:59 Rosey Watkins PA is PHCP. [facility] 13:59 Gregg Escobedo MD is Attending Physician. [facility] 14:03 Sabra Marcelo, LELIA is Primary Nurse. 4 14:04 Patient has correct armband on for positive identification. Bed in low position. Call ls4 light in reach. Side rails up X 1. 14:04 Inserted saline lock: 20 gauge. Patient maintains SpO2 saturation greater than 95% on ls4 room air. 15:59 No apparent distress. Resting quietly. ls4 16:00 Assist provider with I \T\ D: of an abscess on right scapular area. ls4 17:10 Dressings: 4X4s X 3; right scapular area. Wound care:. ls4 Administered Medications: 15:25 Drug: Lidocaine (1 %) 20 ml {Note: per Rosey Watkins .} Volume: 20 ml; Route: ls4 Infiltration; 15:35 Follow up: Response: No adverse reaction ls4 15:26 Drug: Marcaine (0.5 %) 10 ml {Note: per rosye watkins .} Volume: 10 ml; Route: ls4 Infiltration; 15:35 Follow up: Response: No adverse reaction 4 Outcome: 16:55 Discharge ordered by . chelle 17:20 Patient left the ED. ls4 17:20 Condition: good ls4 17:20 Discharged to home ambulatory. ls4 17:20 Discharge instructions given to patient, Instructed on discharge instructions, follow up and referral plans. medication usage, wound care, Demonstrated understanding of instructions, follow-up care, medications, Prescriptions given X 1. Signatures: Rosey Watkins PA PA jmm Leal, Jahala, RN RN jl7 Sabra Marcelo RN RN ls4 Dior Aguilera ag5 Corrections: (The following items were deleted from the chart) 16:01 14:04 No provider procedures requiring assistance completed. ls4 ls4
[2020-01-27 17:38] VITALS: BP 132/77; TEMP 97.3; O2SAT 100
== END 2020-01-27 17:20 | disposition home or self-care (01) ==
LOC: ER 12:22
PROC: 0J9D0ZZ Drainage of Right Upper Arm Subcutaneous Tissue and Fascia, Open Approach (ICD-10-PCS; principal; 2020-01-27)
DX: L72.3 Sebaceous cyst (principal)
CPT/HCPCS: 99284